=== PATIENT | female | born 2005 | race Caucasian/White ===

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

== ENCOUNTER 2024-10-01 17:46 | Emergency (ER) | payer OTHER, SELFPAY ==
--- NOTE | ~2024-10-01 | CT_ITS ---
CT of the Abdomen and Pelvis: Indication: Abdominal pain Technique: 2.5 mm axial scans were obtained through the abdomen and pelvis following intravenous adm inistration of 100 cc of Omnipaque 350. Dose reduction technique was used on this scan by utilizing a utomated exposure control and iterative reconstruction technique. The dose-length product (DLP) was 2 94.30 mGy-cm. Findings: Scans through the lung bases are unremarkable. The liver, spleen, pancreas, gallbladder, and adrenal glands are within normal limits. There is patch y decreased parenchymal enhancement of the superior pole the left kidney, compatible with pyelonephri tis. There is similar involvement focally, to lesser extent, in the right renal cortex (axial image 6 3). No abscess or hydronephrosis. No evidence of aortic aneurysm. No lymphadenopathy. No bowel obstruction or bowel wall thickening. There is no evidence to suggest acute appendicitis. Images through the pelvis were performed. Urinary bladder unremarkable. No adnexal mass. No ascites. Impression: Bilateral pyelonephritis, left worse than right. No abscess or hydronephrosis. Reviewed, dictated and finalized at location . Impression: Bilateral pyelonephritis, left worse than right. No abscess or hydronephrosis.
[2024-10-01 17:46] VITALS: BP 128/87; PULSE 124; RESP 20; TEMP 37.4; O2SAT 99
--- OUTSIDE RECORDS SUMMARY | 2024-10-01 17:48 | XMS_ITS | CONTINUITY OF CARE DOCUMENT ---
Author Name jackie mejia Address Unknown Organization [facility] Address [address] [place] [address] Phone [phone] Care Team Providers Care Deployment Technician Name Role Phone Mariama DELUNA, Víctor Unavailable [phone] DIONISIO PEREZ MD Unavailable INSURANCE PROVIDERS Payer name Policy type / Coverage type [place] [employer] Medicaid [id number]
--- NOTE | 2024-10-01 20:35 | ED_ITS ---
HPI - Back Pain/Injury General Chief Complaint: Back Pain/Injury <NAOMIE Devine Last Filed: 10/03/24 10:09> Stated Complaint: back pain, bilateral flank <NAOMIE Devine Last Filed: 10/03/24 10:09> Time Seen by Provider: 10/01/24 20:22 <NAOMIE Devine Last Filed: 10/03/24 10:09> Source: patient <NAOMIE Devine Last Filed: 10/03/24 10:09> Mode of arrival: ambulatory <NAOMIE Devine Last Filed: 10/03/24 10:09> Limitations: no limitations <NAOMIE Devine Last Filed: 10/03/24 10:09> History of Present Illness HPI Narrative: This is a 19 year old female that presents to the ER for flank pain, lower abdominal pain. Ongoing since yesterday. Reports subjective fevers. Denies dysuria, hematuria. <NAOMIE Devine Last Filed: 10/03/24 10:09> Related Data Home Medications: Home Medications Medication Instructions Recorded Confirmed Last Taken Type aspirin 81 mg tablet,delayed 81 mg PO DAILY 01/28/20 01/28/20 Unknown History release (Madeleine Low Dose Aspirin) calcium 500 mg (as 1 tablet PO BID 01/28/20 01/28/20 Unknown History carbonate)-vitamin D3 5 mcg (200 unit) tablet (Oysco 500/D) folic acid 1 mg tablet 4 mg PO DAILY 01/28/20 01/28/20 Unknown History vit no.95-ferrous 1 tablet PO DAILY 01/28/20 01/28/20 Unknown History fumarate 28 mg-folic acid 800 mcg tablet () <NAOMIE Devine Last Filed: 10/03/24 10:09> Allergies/Adverse Reactions: Allergies Allergy/AdvReac Type Severity Reaction Status Date / Time latex Allergy Itching Verified 10/01/24 17:48 <NAOMIE Devine Last Filed: 10/03/24 10:09> Review of Systems 2 Review of Systems: CONSTITUTIONAL: Denies fever GASTROINTESTINAL: Reports abdominal pain. Denies nausea, vomiting GENITOURINARY: Reports dysuria. Denies hematuria. 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 in teenager <Natalie Muhammad PA-C - Last Filed: 10/03/24 10:09> Family History Family History: Family History Grandparent Cervical cancer Mother Cervical cancer <Natalie Muhammad PA-C - Last Filed: 10/03/24 10:09> Social History Social History: Social History (Updated 02/20/20 @ 12:23 by Bo MeyersMD) Smoking packs per day: 1 Smoking cigarettes per day: 20.0 Years smoked: 2 Smoking pack-years: 2.00 Smoking status: Former smoker Tobacco type: cigarettes Second hand tobacco smoke exposure: Yes Alcohol intake: never Substance use: former Substance use type: marijuana Living arrangements: with family Occupation/Education: student Gender identity (if verbalized by the patient): Female Sexual Orientation (if Verbalized by the Patient): Straight or Heterosexual Spiritual care concerns: No <NAOMIE Devine Last Filed: 10/03/24 10:09> Exam 2 Narrative: GENERAL: Well-appearing, well-nourished, and in no acute distress. HEAD: Normocephalic, atraumatic. EYES: EOMI. CHEST: Clear to auscultation. No respiratory distress. No wheezes rales or rhonchi HEART: Regular rate and rhythm. No murmur heard. Normal peripheral pulses. ABDOMEN: Soft, nontender, nondistended, normal active bowel sounds. EXTREMITIES: Normal range of motion. No edema. SKIN: Warm, dry, no rash. NEURO: No focal deficits. Alert and oriented x3. PSYCH: Normal mood and affect <Natalie Muhammad PA-C - Last Filed: 10/03/24 10:09> Course Course Emergency Course: Patient was updated on her workup thus far. Dr. Tran will follow-up for disposition <Natalie Muhammad PA-C - Last Filed: 10/03/24 10:09> Vital Signs Vital signs: Vital Signs Temperature 99.3 F 10/01/24 17:46 Pulse Rate 124 H 10/01/24 17:46 Respiratory Rate 20 10/01/24 17:46 Blood Pressure 128/87 10/01/24 17:46 Pulse Oximetry 99 10/01/24 17:46 Oxygen Delivery Room Air 10/01/24 17:46 Temperature 98 F 10/02/24 04:18 Pulse Rate 86 10/02/24 04:18 Respiratory Rate 15 10/02/24 04:18 Blood Pressure 111/63 10/02/24 04:18 Pulse Oximetry 100 10/02/24 04:18 Oxygen Delivery Room Air 10/01/24 20:36 <Natalie Muhammad PA-C - Last Filed: 10/03/24 10:09> Vital Signs Temperature 99.3 F 10/01/24 17:46 Pulse Rate 124 H 10/01/24 17:46 Respiratory Rate 20 10/01/24 17:46 Blood Pressure 128/87 10/01/24 17:46 Pulse Oximetry 99 10/01/24 17:46 Oxygen Delivery Room Air 10/01/24 17:46 Temperature 98 F 10/02/24 04:18 Pulse Rate 86 10/02/24 04:18 Respiratory Rate 15 10/02/24 04:18 Blood Pressure 111/63 10/02/24 04:18 Pulse Oximetry 100 10/02/24 04:18 Oxygen Delivery Room Air 10/01/24 20:36 <Vika Tran MD - Last Filed: 10/02/24 03:44> MDM - Back Pain/Injury MDM Narrative Medical decision making narrative: Patient presents to the emergency department for flank pain, lower abdominal pain. Tachycardic upon arrival, this normalized with IV fluid hydration. She is afebrile and nontoxic appearing. CBC with leukocytosis to 13. Metabolic panel with normal appearing kidney function. She does have mild hyponatremia. Patient was hydrated with 2 L of IV fluids. Urine without evidence of infection. This was sent for culture. test is negative. Care taken over by Dr. Tran pending CT results [age] year-old patient presenting with flank pain and urinary symptoms consistent with UTI. Urinalysis is obtained and positive for signs of infection. Urine culture sent. CT obtained to rule out infected stone, this does not show stone but does show pyelonephritis. Patient started on ceftriaxone and IV fluids here, Toradol for pain, and on re- evaluation, is now resting very comfortably and feeling much better. Repeat vital signs are normal. Patient like to go home at this time and I feel this is quite reasonable given her vital signs are now completely normal and she is in no distress, I will start her on antibiotics for pyelonephritis with strict return precautions, discussed with patient and boyfriend at bedside. Follow-up to PCP. <Natalie Muhammad PA-C - Last Filed: 10/03/24 10:09> [age] year-old patient presenting with flank pain and urinary symptoms consistent with UTI. Urinalysis is obtained and positive for signs of infection. Urine culture sent. CT obtained to rule out infected stone, this is she does not show stone but does show pyelonephritis. Patient started on ceftriaxone and IV fluids here, Toradol for pain, and on re- evaluation, is now resting very comfortably and feeling much better. Repeat vital signs are normal. Patient like to go home at this time and I feel this is quite reasonable given her vital signs are now completely normal and she is in no distress, I will start her on antibiotics for pyelonephritis with strict return precautions, discussed with patient and boyfriend at bedside. Follow-up to PCP. <Vika Tran MD - Last Filed: 10/02/24 03:44> Differential Diagnosis Differential diagnosis: Likely pyelonephritis and other (Kidney stone) <Natalie Muhammad PA-C - Last Filed: 10/03/24 10:09> Lab Data Attestation: I reviewed the patient's lab results. <Natalie Muhammad PA-C - Last Filed: 10/03/24 10:09> Result diagrams: 10/01/24 20:35 10/01/24 20:36 <Natalie Muhammad PA-C - Last Filed: 10/03/24 10:09> Labs: Lab Results 10/01/24 10/01/24 10/01/24 Range/Units 20:35 20:36 21:05 WBC 13.0 H (4.5-10.0) K/mm3 RBC 4.20 (4.2-5.4) M/mm3 Hgb 13.8 D (12.0-15.0) g/dL Hct 39.7 (37.0-47.0) % MCV 94.5 (80-100) fl MCH 32.9 (26-34) pg MCHC 34.8 (32-36) g/dl RDW 11.4 L (11.5-14.5) % Plt Count 257 (150-375) k/mm3 MPV 9.0 (7.4-10.4) fl Immature Gran % (Auto) 0.5 (0-0.5) % Neut % (Auto) 85.5 H (45.5-73.1) % Lymph % (Auto) 5.8 L (18.3-44.2) % [place] % (Auto) 7.9 (2.6-8.5) % Eos % (Auto) 0.1 (0-4.4) % Baso % (Auto) 0.2 (0.2-1.2) % Lymph # (Auto) 0.75 L (0.9-3.2) K/mm3 [place] # (Auto) 1.0 H (0.1-0.6) K/mm3 Eos # (Auto) 0.0 (0-0.3) K/mm3 Baso # (Auto) 0.0 (0.0-0.1) K/mm3 Abs Immat Gran (auto) 0.07 H (0.00-0.031) K/mm3 Absolute Neuts (auto) 11.1 H (1.3-6.7) K/mm3 Absolute Nucleated RBC 0.000 (0.0-0.012) K/mm3 Nucleated RBC % 0.0 (0.0-0.2) % Sodium 129 L (137-145) mmol/L Potassium 3.8 (3.4-5.0) mmol/L Chloride 99 (98-107) mmol/L Carbon Dioxide 20 L (22-30) mmol/L Anion Gap 10 (4-12) mmol/L BUN 12 (7-17) mg/dL Creatinine 0.82 (0.7-1.0) mg/dL Estim Creat Clear Calc 85 ml/min Estimated GFR > 60 (59 - ) Glucose 121 H (65-110) mg/dL Calcium 9.2 (8.4-10.2) mg/dL Total Bilirubin 0.7 (0.2-1.3) mg/dL AST 25 (14-36) U/L ALT 21 (6-35) U/L Alkaline Phosphatase 100 (38-126) U/L Total Protein 8.0 (6.3-8.2) g/dL Albumin 4.2 (3.5-5.1) g/dL Urine Color Yellow (Yellow) Urine Appearance Cloudy H (Clear) Urine pH 5.5 (5.0-9.0) Ur Specific [place] 1.016 (1.001-1.035) Urine Protein 1+ H (Negative) mg/dL Urine Glucose (UA) Negative (Negative) mg/dL Urine Ketones Trace H (Negative) mg/dL Ur Blood (Man) 2+ H (Negative) Urine Nitrate Positive H (Negative) Urine Bilirubin Negative (Negative) Urine Urobilinogen 0.2 (<2.0) mg/dL Add Ur Microanalysis Reviewed Leukocyte Esterase Rfl 3+ H (Negative) CHASE/UL Urine RBC 11-20 H (0-2) /hpf Urine WBC >100 H (0-3) /hpf Ur Squamous Epith Cells Few (Few) /hpf Urine Bacteria 4+ H /hpf Urine Casts 0-2 POC Urine HCG, Qual (Negative) 10/01/24 Range/Units 21:07 WBC (4.5-10.0) K/mm3 RBC (4.2-5.4) M/mm3 Hgb (12.0-15.0) g/dL Hct (37.0-47.0) % MCV (80-100) fl MCH (26-34) pg MCHC (32-36) g/dl RDW (11.5-14.5) % Plt Count (150-375) k/mm3 MPV (7.4-10.4) fl Immature Gran % (Auto) (0-0.5) % Neut % (Auto) (45.5-73.1) % Lymph % (Auto) (18.3-44.2) % [place] % (Auto) (2.6-8.5) % Eos % (Auto) (0-4.4) % Baso % (Auto) (0.2-1.2) % Lymph # (Auto) (0.9-3.2) K/mm3 [place] # (Auto) (0.1-0.6) K/mm3 Eos # (Auto) (0-0.3) K/mm3 Baso # (Auto) (0.0-0.1) K/mm3 Abs Immat Gran (auto) (0.00-0.031) K/mm3 Absolute Neuts (auto) (1.3-6.7) K/mm3 Absolute Nucleated RBC (0.0-0.012) K/mm3 Nucleated RBC % (0.0-0.2) % Sodium (137-145) mmol/L Potassium (3.4-5.0) mmol/L Chloride (98-107) mmol/L Carbon Dioxide (22-30) mmol/L Anion Gap (4-12) mmol/L BUN (7-17) mg/dL Creatinine (0.7-1.0) mg/dL Estim Creat Clear Calc ml/min Estimated GFR (59 - ) Glucose (65-110) mg/dL Calcium (8.4-10.2) mg/dL Total Bilirubin (0.2-1.3) mg/dL AST (14-36) U/L ALT (6-35) U/L Alkaline Phosphatase (38-126) U/L Total Protein (6.3-8.2) g/dL Albumin (3.5-5.1) g/dL Urine Color (Yellow) Urine Appearance (Clear) Urine pH (5.0-9.0) Ur Specific [place] (1.001-1.035) Urine Protein (Negative) mg/dL Urine Glucose (UA) (Negative) mg/dL Urine Ketones (Negative) mg/dL Ur Blood (Man) (Negative) Urine Nitrate (Negative) Urine Bilirubin (Negative) Urine Urobilinogen (<2.0) mg/dL Add Ur Microanalysis Leukocyte Esterase Rfl (Negative) CHASE/UL Urine RBC (0-2) /hpf Urine WBC (0-3) /hpf Ur Squamous Epith Cells (Few) /hpf Urine Bacteria /hpf Urine Casts POC Urine HCG, Qual Negative (Negative) <Natalie Muhammad PA-C - Last Filed: 10/03/24 10:09> Lab Results 10/01/24 10/01/24 10/01/24 Range/Units 20:35 20:36 21:05 WBC 13.0 H (4.5-10.0) K/mm3 RBC 4.20 (4.2-5.4) M/mm3 Hgb 13.8 D (12.0-15.0) g/dL Hct 39.7 (37.0-47.0) % MCV 94.5 (80-100) fl MCH 32.9 (26-34) pg MCHC 34.8 (32-36) g/dl RDW 11.4 L (11.5-14.5) % Plt Count 257 (150-375) k/mm3 MPV 9.0 (7.4-10.4) fl Immature Gran % (Auto) 0.5 (0-0.5) % Neut % (Auto) 85.5 H (45.5-73.1) % Lymph % (Auto) 5.8 L (18.3-44.2) % [place] % (Auto) 7.9 (2.6-8.5) % Eos % (Auto) 0.1 (0-4.4) % Baso % (Auto) 0.2 (0.2-1.2) % Lymph # (Auto) 0.75 L (0.9-3.2) K/mm3 [place] # (Auto) 1.0 H (0.1-0.6) K/mm3 Eos # (Auto) 0.0 (0-0.3) K/mm3 Baso # (Auto) 0.0 (0.0-0.1) K/mm3 Abs Immat Gran (auto) 0.07 H (0.00-0.031) K/mm3 Absolute Neuts (auto) 11.1 H (1.3-6.7) K/mm3 Absolute Nucleated RBC 0.000 (0.0-0.012) K/mm3 Nucleated RBC % 0.0 (0.0-0.2) % Sodium 129 L (137-145) mmol/L Potassium 3.8 (3.4-5.0) mmol/L Chloride 99 (98-107) mmol/L Carbon Dioxide 20 L (22-30) mmol/L Anion Gap 10 (4-12) mmol/L BUN 12 (7-17) mg/dL Creatinine 0.82 (0.7-1.0) mg/dL Estim Creat Clear Calc 85 ml/min Estimated GFR > 60 (59 - ) Glucose 121 H (65-110) mg/dL Calcium 9.2 (8.4-10.2) mg/dL Total Bilirubin 0.7 (0.2-1.3) mg/dL AST 25 (14-36) U/L ALT 21 (6-35) U/L Alkaline Phosphatase 100 (38-126) U/L Total Protein 8.0 (6.3-8.2) g/dL Albumin 4.2 (3.5-5.1) g/dL Urine Color Yellow (Yellow) Urine Appearance Cloudy H (Clear) Urine pH 5.5 (5.0-9.0) Ur Specific [place] 1.016 (1.001-1.035) Urine Protein 1+ H (Negative) mg/dL Urine Glucose (UA) Negative (Negative) mg/dL Urine Ketones Trace H (Negative) mg/dL Ur Blood (Man) 2+ H (Negative) Urine Nitrate Positive H (Negative) Urine Bilirubin Negative (Negative) Urine Urobilinogen 0.2 (<2.0) mg/dL Add Ur Microanalysis Reviewed Leukocyte Esterase Rfl 3+ H (Negative) CHASE/UL Urine RBC 11-20 H (0-2) /hpf Urine WBC >100 H (0-3) /hpf Ur Squamous Epith Cells Few (Few) /hpf Urine Bacteria 4+ H /hpf Urine Casts 0-2 POC Urine HCG, Qual (Negative) // Range/Units 21:07 WBC (4.5-10.0) K/mm3 RBC (4.2-5.4) M/mm3 Hgb (12.0-15.0) g/dL Hct (37.0-47.0) % MCV (80-100) fl MCH (26-34) pg MCHC (32-36) g/dl RDW (11.5-14.5) % Plt Count (150-375) k/mm3 MPV (7.4-10.4) fl Immature Gran % (Auto) (0-0.5) % Neut % (Auto) (45.5-73.1) % Lymph % (Auto) (18.3-44.2) % [place] % (Auto) (2.6-8.5) % Eos % (Auto) (0-4.4) % Baso % (Auto) (0.2-1.2) % Lymph # (Auto) (0.9-3.2) K/mm3 [place] # (Auto) (0.1-0.6) K/mm3 Eos # (Auto) (0-0.3) K/mm3 Baso # (Auto) (0.0-0.1) K/mm3 Abs Immat Gran (auto) (0.00-0.031) K/mm3 Absolute Neuts (auto) (1.3-6.7) K/mm3 Absolute Nucleated RBC (0.0-0.012) K/mm3 Nucleated RBC % (0.0-0.2) % Sodium (137-145) mmol/L Potassium (3.4-5.0) mmol/L Chloride (98-107) mmol/L Carbon Dioxide (22-30) mmol/L Anion Gap (4-12) mmol/L BUN (7-17) mg/dL Creatinine (0.7-1.0) mg/dL Estim Creat Clear Calc ml/min Estimated GFR (59 - ) Glucose (65-110) mg/dL Calcium (8.4-10.2) mg/dL Total Bilirubin (0.2-1.3) mg/dL AST (14-36) U/L ALT (6-35) U/L Alkaline Phosphatase (38-126) U/L Total Protein (6.3-8.2) g/dL Albumin (3.5-5.1) g/dL Urine Color (Yellow) Urine Appearance (Clear) Urine pH (5.0-9.0) Ur Specific [place] (1.001-1.035) Urine Protein (Negative) mg/dL Urine Glucose (UA) (Negative) mg/dL Urine Ketones (Negative) mg/dL Ur Blood (Man) (Negative) Urine Nitrate (Negative) Urine Bilirubin (Negative) Urine Urobilinogen (<2.0) mg/dL Add Ur Microanalysis Leukocyte Esterase Rfl (Negative) CHASE/UL Urine RBC (0-2) /hpf Urine WBC (0-3) /hpf Ur Squamous Epith Cells (Few) /hpf Urine Bacteria /hpf Urine Casts POC Urine HCG, Qual Negative (Negative) <Vika Tran MD - Last Filed: 10/02/24 03:44> Imaging Data Radiologist's impression: ITS Impressions Abdomen/Pelvis CT 10/02/24 05:40 Impression: Bilateral pyelonephritis, left worse than right. No abscess or hydronephrosis. <Natalie Muhammad PA-C - Last Filed: 10/03/24 10:09> Critical Care Time Critical Care Time Critical Care Time: No <Natalie Muhammad PA-C - Last Filed: 10/03/24 10:09> Discharge Plan Discharge Clinical Impression: Pyelonephritis <Natalie Muhammad PA-C - Last Filed: 10/03/24 10:09> Patient Disposition: Home <Natalie Muhammad PA-C - Last Filed: 10/03/24 10:09> Condition: Stable <Natalie Muhammad PA-C - Last Filed: 10/03/24 10:09> Instructions: Kidney Infection (ED) <Natalie Muhammad PA-C - Last Filed: 10/03/24 10:09> Additional Instructions: Please follow up with your doctor; take all your antibiotics as prescribed, and few feel worse or can not keep anything down, come back to the hospital. <Natalie Muhammad PA-C - Last Filed: 10/03/24 10:09> Patient Language: Sen[place]alese <Natalie Muhammad PA-C - Last Filed: 10/03/24 10:09> Prescriptions: New sulfamethoxazole-trimethoprim [Bactrim DS] 800-160 mg tablet 1 tablet PO Q12H Qty: 14 0RF ibuprofen 600 mg tablet 600 mg PO TID PRN (Reason: fever or pain) Qty: 30 0RF ondansetron 4 mg tablet,disintegrating 4 mg PO Q8H PRN (Reason: nausea and vomiting) Qty: 10 0RF No Action aspirin [Madeleine Low Dose Aspirin] 81 mg Tablet,Delayed Release (Dr/Ec) 81 mg PO DAILY folic acid 1 mg Tablet 4 mg PO DAILY calcium carbonate-vitamin D3 [Oysco 500/D] 500 mg(1,250mg) -200 unit Tablet 1 tablet PO BID PNV cmb#95-ferrous fumarate-FA [] 28 mg iron- 800 mcg Tablet 1 tablet PO DAILY <Natalie Muhammad PA-C - Last Filed: 10/03/24 10:09> Follow-up/Referrals: UNKNOWN,DOCTOR [Non-Staff] - <Natalie Muhammad PA-C - Last Filed: 10/03/24 10:09>
[2024-10-01 20:36] VITALS: BP 123/71; PULSE 71; RESP 20; TEMP 37.6; O2SAT 95
[2024-10-01 20:41] VITALS: BP 123/71; PULSE 90; O2SAT 96
[2024-10-01 20:50] LABS: Basophils Percent Auto 0.2 % (0.2-1.2); Eosinophils Percent Auto 0.1 % (0-4.4); Hematocrit 39.7 % (37.0-47.0); Hemoglobin 13.8 g/dL (12.0-15.0); Immature Granulocyte Absolute 0.07 K/mm3 (0.00-0.031); Immature Granulocyte Percent A 0.5 % (0-0.5); Lymphocytes Absolute Auto 0.75 K/mm3 (0.9-3.2); Lymphocytes Percent Auto 5.8 % (18.3-44.2); Mean Corpuscular HGB Conc 34.8 g/dl (32-36); Mean Corpuscular Hemoglobin 32.9 pg (26-34); Mean Corpuscular Volume 94.5 fl (80-100); Monocytes Percent Auto 7.9 % (2.6-8.5); Neutrophils Absolute Auto 11.1 K/mm3 (1.3-6.7); Neutrophils Percent Auto 85.5 % (45.5-73.1); Platelet Count Result 257 k/mm3 (150-375); Red Cell Distribution Width 11.4 % (11.5-14.5)
[2024-10-01 21:00] LABS: Alanine Aminotransferase 21 U/L (6-35); Albumin Level 4.2 g/dL (3.5-5.1); Alkaline Phosphatase 100 U/L (38-126); Anion Gap 10 mmol/L (4-12); Aspartate Amino Transferase 25 U/L (14-36); Bilirubin,Total 0.7 mg/dL (0.2-1.3); Blood Urea Nitrogen 12 mg/dL (7-17); Calcium 9.2 mg/dL (8.4-10.2); Carbon Dioxide 20 mmol/L (22-30); Chloride 99 mmol/L (98-107); Estimated CRCL calculation 85 ml/min; Estimated Glomerular Filt Rate > 60; Glucose 121 mg/dL (65-110); Potassium 3.8 mmol/L (3.4-5.0); Sodium 129 mmol/L (137-145)
[2024-10-01 21:03] VITALS: O2SAT 99
[2024-10-01] MEDS: SODIUM CHLORIDE 0.9% IV 1,000 ML 999 ML IV CONT ×2 (21:06→22:09)
[2024-10-01 21:09] LABS: BEDSIDEPREGUCG Negative (Negative)
[2024-10-01 21:15] VITALS: BP 129/94; PULSE 95; O2SAT 98
[2024-10-01 21:16] VITALS: PULSE 83; RESP 20; O2SAT 98
[2024-10-01 21:38] LABS: Add Urine Microscopic? YES; Appearance Urine Cloudy (Clear); Bacteria Urine 4+ /hpf; Bilirubin Urine Negative (Negative); Blood Urine 2+ (Negative); Color Urine Yellow (Yellow); Glucose Urine UA Negative (Negative); Ketones Urine Trace mg/dL (Negative); Leukocyte Esterase Ur 3+ LEU/UL (Negative); Need Manual Microscopic Reviewed; Nitrate Urine Positive (Negative); Non Pathogenic Casts 0-2; Protein Urine 1+ mg/dL (Negative); Specific Grav Ur 1.016 (1.001-1.035); Squamous Epithelial Cell Urine Few /hpf (Few); Urobilinogen Urine 0.2 mg/dL (<2.0); WBC Urine >100 /hpf (0-3); pH Urine 5.5 (5.0-9.0)
[2024-10-01] MEDS: ACETAMINOPHEN 500 MG TABLET 1000 MG PO (22:08)
--- NOTE | 2024-10-01 22:30 | PC.NURSE ---
Blood Cultures sent
[2024-10-02 00:15] VITALS: PULSE 108; RESP 29
[2024-10-02 01:12] VITALS: TEMP 37.2
[2024-10-02] MEDS: KETOROLAC 15 MG/ML VIAL (*BKC) IV PUSH (02:14)
[2024-10-02 02:45] VITALS: BP 116/76; PULSE 79; O2SAT 98
[2024-10-02 04:17] VITALS: TEMP 36.6
[2024-10-02 04:18] VITALS: BP 111/63; PULSE 86; RESP 15; TEMP 36.6; O2SAT 100
== END 2024-10-02 03:55 | disposition home or self-care (01) ==
PROVIDERS: Physician Assistant; Emergency Provider Emergency Medicine
DX: N12 Tubulo-interstitial nephritis, not specified as acute or chronic (principal); Z87.891 Personal history of nicotine dependence
CPT/HCPCS: 36415; 74177; 80053; 81001; 81025; 85025; 87040; 87086; 87186; 96365; 96374; 99284; A9270; J0696; J1885; J7030; Q9967

== ENCOUNTER 2024-11-11 14:23 | Emergency (ER) | payer OTHER, SELFPAY ==
--- NOTE | ~2024-11-11 | XR_ITS ---
XR ankle RT min 3V Ordering provider: Bernadine Perdomo APRN History: . injury . Comparison: None. FINDINGS: BONES: No acute fracture or dislocation. JOINT SPACES: Normal. SOFT TISSUES: Normal. IMPRESSION: No acute osseous abnormality of the right ankle. Reviewed, dictated and finalized at location A.
--- NOTE | ~2024-11-11 | XR_ITS ---
XR foot RT min 3V Ordering provider: Bernadine Perdomo APRN History: . injury . Comparison: None. FINDINGS: BONES: No acute fracture or dislocation. JOINT SPACES: Normal. No tarsal coalition. SOFT TISSUES: Normal. IMPRESSION: No acute osseous abnormality of the right foot. Reviewed, dictated and finalized at location A.
[2024-11-11 14:27] VITALS: BP 128/55; PULSE 81; RESP 16; TEMP 36.6; O2SAT 100
--- NOTE | 2024-11-11 14:36 | ED.LOWEXIN ---
HPI - Extremity Injury (Lower) General Chief Complaint: Extremity Injury, Lower <Bernadine Perdomo DIRECTOR OF OCCUPATIONAL HEALTH - Last Filed: 11/11/24 14:40> Stated Complaint: R foot/ankle injury after fall yesterday <Bernadine Perdomo APRN - Last Filed: 11/11/24 14:40> Time Seen by Provider: 11/11/24 14:25 <Bernadine Perdomo APRN - Last Filed: 11/11/24 14:40> Focused HPI: Patient is a 19-year-old female who presents to the ER with right foot pain. She reports she was getting out of her car last night and fell. Patient is unsure about the mechanism of injury. She endorses pain in her right toes and the distal part of her right foot. Patient endorses bruising underneath her right ankle. She endorses a history of kidney problems including a recent kidney infection. Patient denies any other medical history relevant to this ER visit. She reports she has not taken anything to treat the pain. Patient denies any calf pain, recent fevers, decreased range of motion in her ankle. GENERAL: Well-appearing, well-nourished, and in no acute distress. HEAD: Normocephalic, atraumatic. CHEST: Clear to auscultation. ?No respiratory distress. HEART: Regular rate and rhythm.? NEURO: ?Alert and oriented x3. Patient screened in triage and initial orders placed.? ?Additional care and disposition to be based upon?diagnostic testing and treatment. <Bernadine Perdomo APRN - Last Filed: 11/11/24 14:40> Focused HPI: Patient is a 19-year-old female who presents to the ER with right foot pain. She reports she was getting out of her car last night and fell. Patient is unsure about the mechanism of injury. She endorses pain in her right toes and the distal part of her right foot. Patient endorses bruising underneath her right ankle. She endorses a history of kidney problems including a recent kidney infection. Patient denies any other medical history relevant to this ER visit. She reports she has not taken anything to treat the pain. Patient denies any calf pain, recent fevers, decreased range of motion in her ankle. GENERAL: Well-appearing, well-nourished, and in no acute distress. HEAD: Normocephalic, atraumatic. CHEST: Clear to auscultation. ?No respiratory distress. HEART: Regular rate and rhythm.? NEURO: ?Alert and oriented x3. Patient screened in triage and initial orders placed.? ?Additional care and disposition to be based upon?diagnostic testing and treatment. <NAOMIE Pereira Last Filed: 11/11/24 20:28> Source: patient <NAOMIE Pereira Last Filed: 11/11/24 20:28> Mode of arrival: ambulatory <NAOMIE Pereira Last Filed: 11/11/24 20:28> Limitations: no limitations <NAOMIE Pereira Last Filed: 11/11/24 20:28> History of Present Illness HPI Narrative: agree with above HPI. Denies numbness. <NAOMIE Pereira Last Filed: 11/11/24 20:28> Related Data Home Medications: Home Medications ?Medication ?Instructions ?Recorded ?Confirmed ?Last Taken ?Type aspirin 81 mg tablet,delayed 81 mg PO DAILY 01/28/20 01/28/20 Unknown History release (Madeleine Low Dose Aspirin) calcium 500 mg (as 1 tablet PO BID 01/28/20 01/28/20 Unknown History carbonate)-vitamin D3 5 mcg (200 unit) tablet (Oysco 500/D) folic acid 1 mg tablet 4 mg PO DAILY 01/28/20 01/28/20 Unknown History vit no.95-ferrous 1 tablet PO DAILY 01/28/20 01/28/20 Unknown History fumarate 28 mg-folic acid 800 mcg tablet () <Bernadine Perdomo APRN - Last Filed: 11/11/24 14:40> Allergies/Adverse Reactions: Allergies Allergy/AdvReac Type Severity Reaction Status Date / Time latex Allergy Itching Verified 11/11/24 14:25 <Bernadine Perdomo APRN - Last Filed: 11/11/24 14:40> Review of Systems Review of Systems: All systems reviewed & are unremarkable except as noted in HPI. <NAOMIE Pereira Last Filed: 11/11/24 20:28> All systems reviewed & are unremarkable except as noted in HPI and below <Yahaira Noble PA-C - Last Filed: 11/11/24 20:28> [facility] Past Medical History Medical History: Medical History Candidiasis of vagina Bacterial vaginosis Rh negative status during Homozygous MTHFR mutation C677T Intrauterine in teenager <Bernadine Perdomo APRN - Last Filed: 11/11/24 14:40> Family History Family History: Family History Grandparent Cervical cancer Mother Cervical cancer <Bernadine Perdomo APRN - Last Filed: 11/11/24 14:40> Social History Social History: Social History Smoking packs per day: 1 Smoking cigarettes per day: 20.0 Years smoked: 2 Smoking pack-years: 2.00 Smoking status: Former smoker Tobacco type: cigarettes Second hand tobacco smoke exposure: Yes Alcohol intake: never Substance use: former Substance use type: marijuana Living arrangements: with family Occupation/Education: student Gender identity (if verbalized by the patient): Female Sexual Orientation (if Verbalized by the Patient): Straight or Heterosexual Spiritual care concerns: No <Bernadine Perdomo APRN - Last Filed: 11/11/24 14:40> Exam Narrative: GENERAL: Well appearing, well-nourished, non-toxic, in no acute distress. HEAD: Normocephalic, atraumatic. RESPIRATORY: Airway patent, respirations nonlabored. CARDIOVASCULAR: Regular rate and rhythm. Pedal pulses intact and easily palpable. MUSCULOSKELETAL: Moves all extremities. No gross deformities. Moderate swelling and bruising to right lateral dorsal foot/lateral malleoli. Focal tenderness to palpation. Sensation intact. Capillary refill intact. SKIN: Warm, dry, normal color. NEURO: A&O X3. Speech clear. No ataxic movements. PSYCHIATRIC: Appropriate mood and affect. Normal interaction. <Yahaira Noble PA-C - Last Filed: 11/11/24 20:28> Course Vital Signs Vital signs: Vital Signs Temperature 97.9 F 11/11/24 14:27 Pulse Rate 81 11/11/24 14:27 Respiratory Rate 16 11/11/24 14:27 Blood Pressure 128/55 L 11/11/24 14:27 Pulse Oximetry 100 11/11/24 14:27 Temperature 97.7 F 11/11/24 19:32 Pulse Rate 76 11/11/24 19:32 Respiratory Rate 16 11/11/24 19:32 Blood Pressure 119/74 11/11/24 19:32 Pulse Oximetry 98 11/11/24 19:32 Oxygen Delivery Room Air 11/11/24 19:32 <Bernadine Perdomo APRN - Last Filed: 11/11/24 14:40> Vital Signs Temperature 97.9 F 11/11/24 14:27 Pulse Rate 81 11/11/24 14:27 Respiratory Rate 16 11/11/24 14:27 Blood Pressure 128/55 L 11/11/24 14:27 Pulse Oximetry 100 11/11/24 14:27 Temperature 97.7 F 11/11/24 19:32 Pulse Rate 76 11/11/24 19:32 Respiratory Rate 16 11/11/24 19:32 Blood Pressure 119/74 11/11/24 19:32 Pulse Oximetry 98 11/11/24 19:32 Oxygen Delivery Room Air 11/11/24 19:32 <NAOMIE Pereira Last Filed: 11/11/24 20:28> MDM - Extremity Injury (Lower) MDM Narrative Medical decision making narrative: Patient?s injury is consistent with musculoskeletal etiology. No signs of neurologic or vascular compromise on physical examination. Compartments are soft without signs of compartment syndrome. XR of right ankle/foot negative for fracture. Pain is consistent with ankle sprain. Patient is felt to be stable for discharge home and further outpatient management and treatment. Patient placed in Lyle bandage. Given crutches. Discussed rice therapy. Discussed return precautions. Discharged in stable condition. <NAOMIE Pereira Last Filed: 11/11/24 20:28> Medical Records Attestation: I reviewed the patient's medical records. <NAOMIE Pereira Last Filed: 11/11/24 20:28> Imaging Data Attestation: I personally reviewed and interpreted this imaging study as follows: <Yahaira Noble PA-C - Last Filed: 11/11/24 20:28> Radiologist's impression: ITS Impressions Ankle X-Ray 11/11/24 14:39 IMPRESSION: No acute osseous abnormality of the right ankle. Foot X-Ray 11/11/24 14:41 IMPRESSION: No acute osseous abnormality of the right foot. <Yahaira Noble PA-C - Last Filed: 11/11/24 20:28> Discharge Plan Discharge Clinical Impression: Sprain of right ankle Qualifiers: Encounter type: initial encounter Involved ligament of ankle: unspecified ligament Qualified Code(s): S93.401A - Sprain of unspecified ligament of right ankle, initial encounter <Bernadine Perdomo APRN - Last Filed: 11/11/24 14:40> Patient Disposition: Home <Bernadine Perdomo APRN - Last Filed: 11/11/24 14:40> Condition: Stable <Bernadine Perdomo APRN - Last Filed: 11/11/24 14:40> Instructions: Antibiotic Form, Ankle Sprain (ED), P.R.I.C.E. Treatment (ED) <Bernadine Perdomo APRN - Last Filed: 11/11/24 14:40> Additional Instructions: Continue Tylenol and ibuprofen as needed for pain. Recommend frequent icing to ankle, elevation of right leg. Utilize Lyle bandage for compression/support. Utilize crutches for assistance with walking. Follow-up with orthopedics for further evaluation if needed. Return to the ED if you experience worsening or severe pain/swelling, recurrent injury, numbness, or any other symptoms of concern. <Bernadine Perdomo APRN - Last Filed: 11/11/24 14:40> Patient Language: Urdu <Bernadine Perdomo APRN - Last Filed: 11/11/24 14:40> Prescriptions: No Action aspirin [Madeleine Low Dose Aspirin] 81 mg Tablet,Delayed Release (Dr/Ec) 81 mg PO DAILY folic acid 1 mg Tablet 4 mg PO DAILY calcium carbonate-vitamin D3 [Oysco 500/D] 500 mg(1,250mg) -200 unit Tablet 1 tablet PO BID PNV cmb#95-ferrous fumarate-FA [] 28 mg iron- 800 mcg Tablet 1 tablet PO DAILY sulfamethoxazole-trimethoprim [Bactrim DS] 800-160 mg tablet 1 tablet PO Q12H Qty: 14 0RF ibuprofen 600 mg tablet 600 mg PO TID PRN (Reason: fever or pain) Qty: 30 0RF ondansetron 4 mg tablet,disintegrating 4 mg PO Q8H PRN (Reason: nausea and vomiting) Qty: 10 0RF <Bernadine Perdomo APRN - Last Filed: 11/11/24 14:40> Follow-up/Referrals: PHYSICIAN,FLUID DESIGNER [Non-Staff] - Tian Goodman MD [Physician] - (ORTHOPEDICS) <Bernadine Perdomo APRN - Last Filed: 11/11/24 14:40> Time of Disposition: 20:27 <Bernadine Perdomo APRN - Last Filed: 11/11/24 14:40> 20:27 <Yahaira Noble PA-C - Last Filed: 11/11/24 20:28>
--- NOTE | 2024-11-11 19:12 | PC.NURSE ---
Patient called for room assignment, no answer and not seen in waiting room.
[2024-11-11 19:32] VITALS: BP 119/74; PULSE 76; RESP 16; TEMP 36.5; O2SAT 98
[2024-11-11] MEDS: IBUPROFEN 600 MG TABLET PO (20:57)
[2024-11-11] MEDS: ACETAMINOPHEN 500 MG TABLET 1000 MG PO (20:57)
[2024-11-11 21:04] VITALS: BP 130/60; PULSE 68; RESP 16; TEMP 36.4; O2SAT 98
== END 2024-11-11 21:06 | disposition home or self-care (01) ==
PROVIDERS: Emergency Provider Physician Assistant
DX: S93.401A Sprain of unspecified ligament of right ankle, initial encounter (principal); Z87.891 Personal history of nicotine dependence; W17.89XA Other fall from one level to another, initial encounter
CPT/HCPCS: 73610; 73630; 99283; A9270

== ENCOUNTER 2025-03-29 20:39 | Emergency (ER) | payer OTHER, SELFPAY ==
--- OUTSIDE RECORDS SUMMARY | 2009-02-23 08:00 | XMS_ITS | Continuity of Care Document ---
Author Organization [facility] Address [address] [place] [address] Phone Care Team Providers Care Tab Card Press Operator Name Role Phone Hendrickson OD, Bo Unavailable Unavailable Procedures Procedure Date Eye Exam, New Patient Refraction Advance Directives Directive Yes / No Effective Date File Name No Information Encounters Encounter Description Practice Location Reason(s) For Visit Diagnoses Date Provider Providers Copied on Encounter [facility], [address], [place], [place], [id number], [place] tel:[phone] [facility] No Information 9-200 9 Hendrickson OD Bo. [address] , [address], [place], [address], [place]. tel:[phone] Family History Family Member Type Diagnosis Age At Onset No Information Payers Payer name Insurance type Covered green party ID Authoriza tion(s) Medicaid [facility] [id number] Social History Type Description Quantity Date Captured Comments Sex Female Smoking Status No Information Chief Complaint And Reason For Visit No Information Reason For Referral Reason For Referral No Information History Of Present Illness Encounter Date Complaint History Of Prese nt Illness No Information Functional Status Date Functional Assessmen t No Information Instructions Date Instruction Additional Infor mation No Information Assessments Type Assessment Date No Information Patient Care Teams Name Effective Dates (start - stop) Status Members No Information
--- OUTSIDE RECORDS SUMMARY | 2009-02-23 08:00 | XMS_ITS | Continuity of Care Document ---
Author Organization [facility] Address [address] [place] [address] Phone Care Team Providers Care Metal Fence Erector Name Role Phone Hendrickson OD, Bo Unavailable Unavailable Procedures Procedure Date Eye Exam, New Patient Refraction Advance Directives Directive Yes / No Effective Date File Name No Information Encounters Encounter Description Practice Location Reason(s) For Visit Diagnoses Date Provider Providers Copied on Encounter [facility], [address], [place], [place], [id number], [place] tel:[phone] [facility] No Information 9-200 9 Hendrickson OD Bo. [address] , [address], [place], [address], [place]. tel:[phone] Family History Family Member Type Diagnosis Age At Onset No Information Payers Payer name Insurance type Covered green party ID Authoriza tion(s) Medicaid [facility] [id number] Social History Type Description Quantity Date Captured [...]
--- NOTE | ~2025-03-29 | CT_ITS ---
CT abdomen pelvis w con Clinical History: lower abd pain, uti, leukocytosis . Comparison: 10/01/2024 Technique: Axial images lung bases to symphysis pubis 100 mL Omnipaque 350 Coronal, sagittal reformats CT images acquired with automatic exposure control for dose reduction DLP: 464 mGy-cm Findings: Lung bases: Clear. Visualized heart and pericardium: Unremarkable. Liver: Unremarkable. Gallbladder: Unremarkable. Spleen: Unremarkable. Pancreas: Unremarkable. Adrenal glands: Unremarkable. Kidneys: Right kidney- No hydronephrosis. No renal stones. Left kidney- No hydronephrosis. No renal stones. Distal esophagus/stomach: Unremarkable. Small bowel loops: Normal caliber and wall thickness. Colon: Normal caliber and wall thickness. Normal RLQ appendix. Large volume stool Nodes: No enlarged nodes. Peritoneum: No ascites. No free air. Urinary bladder: Wall thickening. Uterus: Unremarkable. Adnexa: No masses. Bones: No acute bony abnormality. Soft tissues: Unremarkable. Aorta: No aneurysm or dissection. IVC: Unremarkable. Main portal vein/SMV/splenic vein: Patent. IMPRESSION: 1. Cystitis. 2. No other acute abnormality. Reviewed, dictated and finalized at location R. ENGINEER
--- OUTSIDE RECORDS SUMMARY | 2025-03-29 20:41 | XMS_ITS | Clinical Summary ---
Author Organization [address] Address [address] [place] [id number] Care Team Providers Care Certified Technician Specialist Name Role Phone No, Physician Primary Care Provider [phone] Allergies No known active allergies Medications clindamycin (CLEOCIN) 300 mg capsuleIndicati ons:Skin/Soft Tissue Infection Take 1 capsule (300 mg total) by mouth 3 (three) times a day 30 capsule 11/15/2024 Active ibuprofen (ADVIL,MOTRIN) 600 mg tablet Take 1 tablet (600 mg total) by mouth every 6 (six) hours as needed for pain 30 tablet 11/15/2024 Active norgestimate-et hinyl estradioL (ORTHO TRI-CYCLEN) 0.18/0.215/0.25 mg-0.035mg (28) per tablet Take 1 tablet by mouth daily 60 tablet 01/15/2025 Active Encounters Date Type Department Care Team Description 01/15/2025 3:54 AM CDT - 01/15/2025 5:31 AM CDT Emergency [facility] Emergency Department [address] [place] [address] Dayan Rubio MD Menorrhagia with regular cycle (Primary Dx) Discharge Disposition: Discharge to home or self care from Last 3 Months Social History Tobacco Use Types Packs/Day Years Used Date Smoking Tobacco: Never Assessed Personal Safety Answer Date Recorded Have you ever been in or are you currently in a harmful physical or emotional relationship or is someone making you feel afraid or unsafe? 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 Gender Identity Not on file Sexual Orientation Not on file Obstetrics History Para Term AB IAB SAB Ectopic Multiple Livin g Live Births 1 1 Date Outcome GA Total Labor Labor/2nd/3rd Weight Sex Type Anes PTL Rose A1 A5 Name Clin Para Last Filed Vital Signs Vital Sign Reading Time Taken Comments Blood Pressure 111/67 01/15/2025 3:15 AM CDT Pulse 86 01/15/2025 3:15 AM CDT Temperature 36.6 C (97.9 F) 01/15/2025 3:15 AM CDT Respiratory Rate 18 01/15/2025 3:15 AM CDT Oxygen Saturation 97% 01/15/2025 3:15 AM CDT Inhaled Oxygen Concentration - - Weight 63.5 kg (140 lb) 01/15/2025 3:15 AM CDT Height 165.1 cm (5' 5) 01/15/2025 3:15 AM CDT Body Mass Index 23.3 01/15/2025 3:15 AM CDT Plan of Treatment Health Maintenance Due Date Last Done Comments Cervical Cancer Screening 2003 Depression Screening 2003 Hepatitis C Screening 2003 HPV Vaccines (1 - 3-dose series) 2018 Meningococcal B Vaccine (1 o f 2 - Standard) 2019 Regular Well Visit/Exam 18-64 2021 Influenza Vaccine (#1) 2025 DTaP/Tdap/Td Vaccine (7 - Td or Tdap) 12/07/2029 12/08/2019, 01/06/2008, 07/25/2004, Additional history exists Hepatitis B Screening Completed 2003 , 2003, 2003, Additional history exists Pneumococcal vaccine <65 Completed 005, 2003, 2003, Additional history exists Varicella Vaccines Completed 01/06/2008, 03/21/2004 Procedures Procedure Name Priority Date/Time Associated Diagnosis Comments URINALYSIS, MICROSCOPIC ONLY STAT 01/15/2025 4:24 AM CDT HCG, URINE, QUALITATIVE STAT 01/15/2025 4:24 AM CDT URINE CULTURE STAT 01/15/2025 4:24 AM CDT URINALYSIS AND REFLEX TO MICROSCOPIC AND CULTURE STAT 01/15/2025 4:24 AM CDT from Last 3 Months Results * (ABNORMAL) Urinalysis reflex to microscopic and culture Urine (01/15/2025 4:24 AM CDT) Color, ur Yellow Yellow Clarity, ur Turbid(A) Clear [facility] (NATHEN) Specific gravity, ur 1.023 1.003 - 1.030 [facility] (NATHEN) pH, urine 6.5 [facility] (NATHEN) Comment: Interpretive Data U rine pH is affected by diet, medications, systemic acid-base disturbances, and renal tubular function. pH may affect urinary stone formation. For example, urine pH below 6.0 may help reduce the tendency for calcium phosphate stones and pH greater than 6.0 may reduce the tendency for uric acid stone formation. Source: [facility] Current Interpretive Data was last revised on 2017 Protein, ur ql Trace Negative [facility] (NATHEN) Glucose, ur ql Negative Negative [facility] (NATHEN) Ketones, ur Negative Negative [facility] (NATHEN) Bilirubin, ur Negative Negative [facility] (NATHEN) Blood, ur 3+(A) Negative [facility] (NATHEN) Urobilinogen, ur <2.0 <2.0 mg/dL [facility] (NATHEN) Nitrite, ur Negative Negative [facility] (NATHEN) Leukocyte esterase, ur 4+(A) Negative [facility] (NATHEN) UA reflex comment Reflex to microscopic UA will be performed. [facility] (NATHEN) Urine 01/15/2025 4:24 AM CDT 01/15/2025 4:28 AM CDT us Dayan Rubio MD LAB MICROBIOLOGY - GENERAL ORDER MELI Final Result [facility] (NATHEN) 1 [facility] Department [place] [address] * hCG, urine, qualitative (01/15/2025 4:24 AM CDT) HCG, ur Negative Negative Urine 01/15/2025 4:24 AM CDT 01/15/2025 4:28 AM CDT Dayan Rubio MD LAB URINE ORDERABLES Final Resul t Performing Organization Address [facility] Co de Phone Number [facility] (NATHEN) 1 [facility] [place] [address] * (ABNORMAL) Urinalysis, microscopic only (01/15/2025 4:24 AM CDT) WBC, ur >50(A) 0 - 5 /HPF RBC, ur 21-50(A) 0 - 2 /HPF [facility] (NATHEN) Epithelial cells, squamous, ur 1-5 0 - 5 /HPF [facility] (NATHEN) Bacteria, ur Trace(A) [facility] (NATHEN) Mucous, ur Present(A) [facility] (NATHEN) Culture Reflex Comment Reflex to urine culture will be performed. [facility] (NATHEN) Urine 01/15/2025 4:24 AM CDT 01/15/2025 4:28 AM CDT Dayan Rubio MD LAB URINE ORDERABLES Final Resul t Performing Organization Address [facility] Co de Phone Number [facility] (NATHEN) 1 [facility] [place] [address] * (ABNORMAL) Urine culture Urine (01/15/2025 4:24 AM CDT) Report Final Report: Greater than or equal to 100,000 colonies/mL of Staphylococcus saprophyticus Routine susceptibility testing of Staphylococcus saprophyticus is not performed because infections respond to concentrations achieved in the urine of antimicrobials commonly used to treat uncomplicated urinary tract infections, such as nitrofurantoin, trimethoprim-sulfa methoxazole, or a fluoroquinolone. Plus growth of clinically insignificant bacterial vitaly. (.) Comment:Testing performed by : [facility], [address] [facility], [place]., [address] Organism STAPHYLOCOCCUS SAPROPHYTICUS [facility] (NATHEN) Organism PLUS GROWTH OF CLINICALLY INSIGNIFICANT VITALY. [facility] (NATHEN) Urine 01/15/2025 4:24 AM CDT 01/15/2025 8:44 AM CDT Narrative [facility] (NATHEN) - 01/17/2025 2:49 PM CDT Urine culture reflexed based upon urinalysis results. Testing performed by [facility] ([phone]) us Dayan Rubio MD LAB MICROBIOLOGY - GENERAL ORDER MELI Final Result [facility] (NATHEN) 1 [facility] Department [place] [address] from Last 3 Months Insurance Care Teams Certified Technician Specialist Relationship Specialty Start Date End Date No, Physician PCP - General 11/15/24
[2025-03-29 20:47] VITALS: BP 116/70; PULSE 83; RESP 20; TEMP 37.3; O2SAT 100
[2025-03-29 20:49] LABS: BEDSIDEPREGUCG Negative (Negative)
[2025-03-29 21:04] LABS: Hematocrit 42.9 % (37.0-47.0); Hemoglobin 14.4 g/dL (12.0-15.0); Immature Granulocyte Percent A 0.6 % (0-0.5); Lymphocytes Absolute Auto 1.06 K/mm3 (0.9-3.2); Mean Corpuscular HGB Conc 33.6 g/dl (32-36); Mean Corpuscular Hemoglobin 31.9 pg (26-34); Mean Corpuscular Volume 94.9 fl (80-100); Nucleated Red Blood Cells Absolute Auto 0.000 K/mm3 (0.0-0.012); Nucleated Red Blood Cells Perc 0.0 % (0.0-0.2); Platelet Count Result 289 k/mm3 (150-375); Red Blood Count 4.52 M/mm3 (4.2-5.4); White Blood Count 15.5 K/mm3 (4.5-10.0)
[2025-03-29 21:11] LABS: Add Urine Microscopic? YES; Appearance Urine Cloudy (Clear); Glucose Urine UA Negative (Negative); Leukocyte Esterase Ur 2+ LEU/UL (Negative); Nitrate Urine Positive (Negative); Non Pathogenic Casts 0-2; Specific Grav Ur 1.025 (1.001-1.035)
[2025-03-29 21:16] LABS: Alanine Aminotransferase 26 U/L (6-35); Albumin Level 4.9 g/dL (3.5-5.1); Alkaline Phosphatase 85 U/L (38-126); Anion Gap 8 mmol/L (4-12); Aspartate Amino Transferase 29 U/L (14-36); Bilirubin,Total 0.6 mg/dL (0.2-1.3); Blood Urea Nitrogen 14 mg/dL (7-17); Calcium 9.3 mg/dL (8.4-10.2); Carbon Dioxide 26 mmol/L (22-30); Chloride 102 mmol/L (98-107); Estimated CRCL calculation 81 ml/min; Estimated Glomerular Filt Rate > 60; Glucose 104 mg/dL (65-110); Lipase 77 U/L (23-300); Potassium 4.2 mmol/L (3.4-5.0); Sodium 136 mmol/L (137-145); Total Protein 8.4 g/dL (6.3-8.2)
[2025-03-29 23:53] VITALS: BP 115/66; PULSE 81; RESP 16; TEMP 37; O2SAT 95
[2025-03-29 23:54] VITALS: PULSE 83; RESP 18; O2SAT 100
[2025-03-30] MEDS: MORPHINE SULFATE (*CRX) 4 MG/ML INJ IV PUSH (01:27)
[2025-03-30] MEDS: SODIUM CHLORIDE 0.9% IV 1,000 ML 999 ML IV CONT (01:27)
[2025-03-30] MEDS: ONDANSETRON INJ 4 MG/2 ML VIAL IV PUSH (01:28)
[2025-03-30] MEDS: cefTRIAXone 1 GM in SODIUM CHLORIDE 0.9% IV 50 ML 100 ML IVPB (01:32)
--- NOTE | 2025-03-30 01:54 | ED_ITS ---
HPI - Abdominal Pain General Chief Complaint: Abdominal Pain <Yahaira Noble PA-C - Last Filed: 03/30/25 03:26> Stated Complaint: abd pain <NAOMIE Pereira Last Filed: 03/30/25 03:26> Time Seen by Provider: 03/30/25 00:00 <Yahaira Noble PA-C - Last Filed: 03/30/25 03:26> Source: patient <NAOMIE Pereira Last Filed: 03/30/25 03:26> Mode of arrival: ambulatory <NAOMIE Pereira Last Filed: 03/30/25 03:26> Limitations: no limitations <NAOMIE Pereira Last Filed: 03/30/25 03:26> History of Present Illness HPI narrative: Patient is a 20-year-old female who presents the ED with report of lower abdominal pain. Patient reports pain began around 6:00 p.m. tonight. Has been constant since then. Has not taken anything for pain. No radiation of pain. Denies ever having pain like this before. Denies nausea, vomiting, diarrhea, constipation, dysuria, hematuria, fevers. <Yahaira Noble PA-C - Last Filed: 03/30/25 03:26> Related Data Home Medications: Home Medications ?Medication ?Instructions ?Recorded ?Confirmed ?Last Taken ?Type aspirin 81 mg tablet,delayed 81 mg PO DAILY 01/28/20 0 01/28/20 Unknown History release (Madeleine Low Dose Aspirin) calcium 500 mg (as 1 tablet PO BID 01/28/2005/06 Unknown History carbonate)-vitamin D3 5 mcg (200 unit) tablet (Oysco 500/D) folic acid 1 mg tablet 4 mg PO DAILY 01/28/2001/27 Unknown History vit no.95-ferrous 1 tablet PO DAILY 01/28/20 01/28/20 Unknown History fumarate 28 mg-folic acid 800 mcg tablet () <NAOMIE Pereira Last Filed: 03/30/25 03:26> Allergies/Adverse Reactions: Allergies Allergy/AdvReac Type Severity Reaction Status Date / Time latex Allergy Itching Verified 11/11/24 14:25 <Yahaira Noble PA-C - Last Filed: 03/30/25 03:26> Review of Systems 2 Review of Systems: All systems reviewed & are unremarkable except as noted in HPI. 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 teenager <Yahaira Noble PA-C - Last Filed: 03/30/25 03:26> Family History Family History: Family History Grandparent Cervical cancer Mother Cervical cancer <Yahaira Noble PA-C - Last Filed: 03/30/25 03:26> Social History Social History: Social History Smoking packs per day: 1 Smoking cigarettes per day: 20.0 Years smoked: 2 Smoking pack-years: 2.00 Tobacco type: cigarettes Second hand tobacco smoke exposure: Yes Alcohol intake: never Substance use: former Substance use type: marijuana Living arrangements: with family Occupation/Education: student Gender identity (if verbalized by the patient): Female Sexual Orientation (if Verbalized by the Patient): Straight or Heterosexual Spiritual care concerns: No <Yahaira Noble PA-C - Last Filed: 03/30/25 03:26> Exam 2 Narrative: GENERAL: Uncomfortable appearing, well-nourished, moaning in pain. HEAD: Normocephalic, atraumatic. RESPIRATORY: Airway patent, respirations nonlabored. Clear to auscultation bilaterally, no rales, rhonchi, wheezing. CARDIOVASCULAR: Regular rate and rhythm without murmurs, rubs, or gallops. ABDOMINAL: Soft, diffuse tenderness with any palpation, no rebound, nondistended. Normoactive BS. MUSCULOSKELETAL: Moves all extremities. No gross deformities. SKIN: Warm, dry, normal color. NEURO: A&O X3. Speech clear. Steady gait. No ataxic movements. PSYCHIATRIC: Anxious, tearful. Normal interaction. <Yahaira Noble PA-C - Last Filed: 03/30/25 03:26> Course Course Emergency Course: Patient signed out to me pending CT imaging. This results as below notable for constipation. Patient assessed at bedside. She denies any dysuria. She is informed about her urinary tract infection as well as constipation and why these diagnoses often exist together. Encouraged to drink plenty of fluids and incorporate fiber into her diet as well as use a bowel regimen of stool softeners and laxative. She denies being on opiate therapy or using recreational narcotics. Given that she appears to be in discomfort, she was given a dose of MiraLax and magnesium citrate in addition to Bentyl before discharge. Does not have a PCP so given contact info for 1. <Radha Wooten MD - Last Filed: 03/30/25 04:36> Vital Signs Vital signs: Vital Signs Temperature 99.1 F 03/29/25 20:47 Pulse Rate 83 03/29/25 20:47 Respiratory Rate 20 03/29/25 20:47 Blood Pressure 116/70 03/29/25 20:47 Pulse Oximetry 100 03/29/25 20:47 Temperature 98.6 F 03/29/25 23:53 Pulse Rate 94 03/30/25 02:54 Respiratory Rate 18 03/30/25 02:54 Blood Pressure 107/57 L 03/30/25 02:54 Pulse Oximetry 100 03/30/25 02:54 <Yahaira Noble PA-C - Last Filed: 03/30/25 03:26> Vital Signs Temperature 99.1 F 03/29/25 20:47 Pulse Rate 83 03/29/25 20:47 Respiratory Rate 20 03/29/25 20:47 Blood Pressure 116/70 03/29/25 20:47 Pulse Oximetry 100 03/29/25 20:47 Temperature 98.6 F 03/29/25 23:53 Pulse Rate 94 03/30/25 02:54 Respiratory Rate 18 03/30/25 02:54 Blood Pressure 107/57 L 03/30/25 02:54 Pulse Oximetry 100 03/30/25 02:54 <Radha Wooten MD - Last Filed: 03/30/25 04:36> MDM - Abdominal Pain MDM Narrative Medical decision making narrative: Patient presented to ED with lower abdominal pain that began tonight. No significant associated symptoms. Has not taken anything for pain. Vital signs are stable upon arrival. Patient is moaning in pain, rolling around on stretcher. Pain control given. White blood cell count 15.5. Neutrophil predominance. No bandemia. CMP unremarkable. Stable kidney function. Stable electrolytes. Urinalysis concerning for infection, positive nitrates, 2+ leuk esterase, greater than 100 WBC, 4+ urine bacteria. Sent for culture. Given dose of Rocephin. Urine negative. UDS positive for cannabinoids and amphetamines. CT scan of abdomen/pelvis was obtained. Care signed out to Dr. Wooten at shift change pending stat rad CT results. < Yahaira Noble PA-C - Last Filed: 03/30/25 03:26> Medical Records Attestation: I reviewed the patient's medical records. <Yahaira Noble PA-C - Last Filed: 03/30/25 03:26> Lab Data Attestation: I reviewed the patient's lab results. <Yahaira Noble PA-C - Last Filed: 03/30/25 03:26> Result diagrams: 03/29/25 20:57 03/29/25 20:57 <Yahaira Noble PA-C - Last Filed: 03/30/25 03:26> Labs: Lab Results 03/29/25 03/29/25 03/29/25 Range/Units 20:48 20:50 20:57 WBC 15.5 H (4.5-10.0) K/mm3 RBC 4.52 (4.2-5.4) M/mm3 Hgb 14.4 (12.0-15.0) g/dL Hct 42.9 (37.0-47.0) % MCV 94.9 (80-100) fl MCH 31.9 (26-34) pg MCHC 33.6 (32-36) g/dl RDW 13.1 (11.5-14.5) % Plt Count 289 (150-375) k/mm3 MPV 9.3 (7.4-10.4) fl Immature Gran % (Auto) 0.6 H (0-0.5) % Neut % (Auto) 86.2 H (45.5-73.1) % Lymph % (Auto) 6.9 L (18.3-44.2) % Russell % (Auto) 4.4 (2.6-8.5) % Eos % (Auto) 1.6 (0-4.4) % Baso % (Auto) 0.3 (0.2-1.2) % Lymph # (Auto) 1.06 (0.9-3.2) K/mm3 Russell # (Auto) 0.7 H (0.1-0.6) K/mm3 Eos # (Auto) 0.3 (0-0.3) K/mm3 Baso # (Auto) 0.1 (0.0-0.1) K/mm3 Abs Immat Gran (auto) 0.10 H (0.00-0.031) K/mm3 Absolute Neuts (auto) 13.3 H (1.3-6.7) K/mm3 Absolute Nucleated RBC 0.000 (0.0-0.012) K/mm3 Nucleated RBC % 0.0 (0.0-0.2) % Sodium 136 L (137-145) mmol/L Potassium 4.2 (3.4-5.0) mmol/L Chloride 102 (98-107) mmol/L Carbon Dioxide 26 (22-30) mmol/L Anion Gap 8 (4-12) mmol/L BUN 14 (7-17) mg/dL Creatinine 0.86 (0.7-1.0) mg/dL Estim Creat Clear Calc 81 ml/min Estimated GFR > 60 (59 - ) Glucose 104 (65-110) mg/dL Calcium 9.3 (8.4-10.2) mg/dL Total Bilirubin 0.6 (0.2-1.3) mg/dL AST 29 (14-36) U/L ALT 26 (6-35) U/L Alkaline Phosphatase 85 (38-126) U/L Total Protein 8.4 H (6.3-8.2) g/dL Albumin 4.9 (3.5-5.1) g/dL Lipase 77 (23-300) U/L Urine Color Yellow (Yellow) Urine Appearance Cloudy H (Clear) Urine pH 6.5 (5.0-9.0) Ur Specific [place] 1.025 (1.001-1.035) Urine Protein Trace (Negative) mg/dL Urine Glucose (UA) Negative (Negative) mg/dL Urine Ketones Negative (Negative) mg/dL Ur Blood (Man) Negative (Negative) Urine Nitrate Positive H (Negative) Urine Bilirubin Negative (Negative) Urine Urobilinogen 0.2 (<2.0) mg/dL Leukocyte Esterase Rfl 2+ H (Negative) CHASE/UL Urine RBC 0-2 (0-2) /hpf Urine WBC >100 H (0-3) /hpf Ur Squamous Epith Cells Occasional (Few) /hpf Urine Bacteria 4+ /hpf Urine Casts 0-2 POC Urine HCG, Qual Negative (Negative) Urine Opiates Screen Negative (Negative) Urine Methadone Screen Negative (Negative) Ur Barbiturates Screen Negative (Negative) Ur Phencyclidine Scrn Negative (Negative) Ur Amphetamine Screen Positive A (Negative) U Benzodiazepines Scrn Negative (Negative) Urine Cocaine Screen Negative (Negative) U Cannabinoids Screen Positive A (Negative) <Yahaira Noble PA-C - Last Filed: 03/30/25 03:26> Lab Results 03/29/25 03/29/25 03/29/25 Range/Units 20:48 20:50 20:57 WBC 15.5 H (4.5-10.0) K/mm3 RBC 4.52 (4.2-5.4) M/mm3 Hgb 14.4 (12.0-15.0) g/dL Hct 42.9 (37.0-47.0) % MCV 94.9 (80-100) fl MCH 31.9 (26-34) pg MCHC 33.6 (32-36) g/dl RDW 13.1 (11.5-14.5) % Plt Count 289 (150-375) k/mm3 MPV 9.3 (7.4-10.4) fl Immature Gran % (Auto) 0.6 H (0-0.5) % Neut % (Auto) 86.2 H (45.5-73.1) % Lymph % (Auto) 6.9 L (18.3-44.2) % Russell % (Auto) 4.4 (2.6-8.5) % Eos % (Auto) 1.6 (0-4.4) % Baso % (Auto) 0.3 (0.2-1.2) % Lymph # (Auto) 1.06 (0.9-3.2) K/mm3 Russell # (Auto) 0.7 H (0.1-0.6) K/mm3 Eos # (Auto) 0.3 (0-0.3) K/mm3 Baso # (Auto) 0.1 (0.0-0.1) K/mm3 Abs Immat Gran (auto) 0.10 H (0.00-0.031) K/mm3 Absolute Neuts (auto) 13.3 H (1.3-6.7) K/mm3 Absolute Nucleated RBC 0.000 (0.0-0.012) K/mm3 Nucleated RBC % 0.0 (0.0-0.2) % Sodium 136 L (137-145) mmol/L Potassium 4.2 (3.4-5.0) mmol/L Chloride 102 (98-107) mmol/L Carbon Dioxide 26 (22-30) mmol/L Anion Gap 8 (4-12) mmol/L BUN 14 (7-17) mg/dL Creatinine 0.86 (0.7-1.0) mg/dL Estim Creat Clear Calc 81 ml/min Estimated GFR > 60 (59 - ) Glucose 104 (65-110) mg/dL Calcium 9.3 (8.4-10.2) mg/dL Total Bilirubin 0.6 (0.2-1.3) mg/dL AST 29 (14-36) U/L ALT 26 (6-35) U/L Alkaline Phosphatase 85 (38-126) U/L Total Protein 8.4 H (6.3-8.2) g/dL Albumin 4.9 (3.5-5.1) g/dL Lipase 77 (23-300) U/L Urine Color Yellow (Yellow) Urine Appearance Cloudy H (Clear) Urine pH 6.5 (5.0-9.0) Ur Specific [place] 1.025 (1.001-1.035) Urine Protein Trace (Negative) mg/dL Urine Glucose (UA) Negative (Negative) mg/dL Urine Ketones Negative (Negative) mg/dL Ur Blood (Man) Negative (Negative) Urine Nitrate Positive H (Negative) Urine Bilirubin Negative (Negative) Urine Urobilinogen 0.2 (<2.0) mg/dL Leukocyte Esterase Rfl 2+ H (Negative) CHASE/UL Urine RBC 0-2 (0-2) /hpf Urine WBC >100 H (0-3) /hpf Ur Squamous Epith Cells Occasional (Few) /hpf Urine Bacteria 4+ /hpf Urine Casts 0-2 POC Urine HCG, Qual Negative (Negative) Urine Opiates Screen Negative (Negative) Urine Methadone Screen Negative (Negative) Ur Barbiturates Screen Negative (Negative) Ur Phencyclidine Scrn Negative (Negative) Ur Amphetamine Screen Positive A (Negative) U Benzodiazepines Scrn Negative (Negative) Urine Cocaine Screen Negative (Negative) U Cannabinoids Screen Positive A (Negative) <Radha Wooten MD - Last Filed: 03/30/25 04:36> Imaging Data Attestation: I personally reviewed and interpreted this imaging study as follows: < Yahaira Noble PA-C - Last Filed: 03/30/25 03:26> Radiologist's impression: CT Stat Rad w/ contrast: Solid organs are within normal limits. No bowel obstruction. Significant stool in the colon is concerning for constipation. Normal appendix. No fracture. Prominence of the bladder wall is concerning for cystitis. Clinical correlation is recommended. No incidental findings. < Radha Wooten MD - Last Filed: 03/30/25 04:36> Discharge Plan Discharge Clinical Impression: Bilateral lower abdominal pain, Constipation UTI (urinary tract infection) Qualifiers: Urinary tract infection type: acute cystitis Hematuria presence: without hematuria Qualified Code(s): N30.00 - Acute cystitis without hematuria <Yahaira Noble PA-C - Last Filed: 03/30/25 03:26> Patient Disposition: Home <Yahaira Noble PA-C - Last Filed: 03/30/25 03:26> Condition: Stable <Yahaira Noble PA-C - Last Filed: 03/30/25 03:26> Instructions: Antibiotic Form, Constipation (ED), Urinary Tract Infection in Women (ED), High Fiber Diet (ED), Abdominal Pain (ED) <Yahaira Noble PA-C - Last Filed: 03/30/25 03:26> Additional Instructions: Take antibiotics as prescribed for urinary tract infection. You received your first dose in the ED. Stay well hydrated. Continue Tylenol/ibuprofen as needed for pain. Follow-up with your primary care doctor for further evaluation urine culture results. Return for new or worsening concerns. The name of a primary care physician is listed below since you do not have 1. You were quite constipated. It is important you drink plenty of fluids and stay hydrated and incorporate fiber foods in your diet. In addition, use supplemental fiber/psyllium/Metamucil, add MiraLax, and if still not having a bowel movement in over still in pain, use laxative magnesium citrate. <NAMOIE Pereira Last Filed: 03/30/25 03:26> Patient Language: Vincentian <Yahaira Noble PA-C - Last Filed: 03/30/25 03:26> Prescriptions: New cephalexin 500 mg capsule 500 mg PO Q12H 7 Days Qty: 14 0RF Metamucil 3.4 gram/5.4 gram powder 1 tbsp PO DAILY Qty: 660 0RF Rx Instructions: mix into at least 8 oz of water or juice before administering magnesium citrate Solution 150 ml PO DAILY PRN (Reason: constipation) Qty: 296 0RF polyethylene glycol 3350 [Miralax] 17 gram/dose powder 17 g PO DAILY Qty: 119 0RF dicyclomine 10 mg capsule 10 mg PO BID PRN (Reason: abdominal pain) Qty: 10 0RF No Action aspirin [Madeleine Low Dose Aspirin] 81 mg Tablet,Delayed Release (Dr/Ec) 81 mg PO DAILY folic acid 1 mg Tablet 4 mg PO DAILY calcium carbonate-vitamin D3 [Oysco 500/D] 500 mg(1,250mg) -200 unit Tablet 1 tablet PO BID PNV no.95-ferrous fumarate-FA [] 28 mg iron- 800 mcg Tablet 1 tablet PO DAILY sulfamethoxazole-trimethoprim [Bactrim DS] 800-160 mg tablet 1 tablet PO Q12H Qty: 14 0RF ibuprofen 600 mg tablet 600 mg PO TID PRN (Reason: fever or pain) Qty: 30 0RF ondansetron 4 mg tablet,disintegrating 4 mg PO Q8H PRN (Reason: nausea and vomiting) Qty: 10 0RF <Yahaira Noble PA-C - Last Filed: 03/30/25 03:26> Follow-up/Referrals: PHYSICIAN,HOME PARAPROFESSIONAL [Primary Care Provider, Internal Medicine] Andrew Zapata MD [Physician, Family Practice] Referral Note: PRIMARY CARE <Yahaira Noble PA-C - Last Filed: 03/30/25 03:26> Stand Alone Forms: Work/School Release IP <Yahaira Noble PA-C - Last Filed: 03/30/25 03:26> Time of Disposition: 04:32 <Yahaira Noble PA-C - Last Filed: 03/30/25 03:26> 04:32 <Radha Wooten MD - Last Filed: 03/30/25 04:36>
[2025-03-30 02:21] LABS: Cannabinoid Screen Urine Positive (Negative)
[2025-03-30 02:54] VITALS: BP 107/57; PULSE 94; RESP 18; O2SAT 100
--- NOTE | 2025-03-30 04:17 | PC.NURSE ---
pt lying on stretcher with eyes closed, respirations even and unlabored.
[2025-03-30] MEDS: DICYCLOMINE HCL 10 MG CAPSULE PO (04:51)
[2025-03-30] MEDS: MAGNESIUM CITRATE 300 ML BTL 150 ML PO (04:52)
[2025-03-30 04:58] VITALS: BP 106/71; PULSE 97; RESP 16; O2SAT 99
== END 2025-03-30 05:05 | disposition home or self-care (01) ==
PROVIDERS: Physician Assistant; Emergency Provider Student in an Organized Health Care Education/Training Program
DX: N30.00 Acute cystitis without hematuria (principal); K59.00 Constipation, unspecified; R10.32 Left lower quadrant pain; R10.31 Right lower quadrant pain; F17.210 Nicotine dependence, cigarettes, uncomplicated
CPT/HCPCS: 36415; 74177; 80053; 80307; 81001; 81025; 83690; 85025; 87086; 87186; 96365; 96375; 99284; A9270; J0696; J2270; J2405; J7030; Q9967

== ENCOUNTER 2025-05-11 05:09 | Emergency (ER) | payer OTHER, SELFPAY ==
--- OUTSIDE RECORDS SUMMARY | 2025-05-10 03:22 | XMS_ITS | Encounter Summary ---
Author Organization [facility] Healthcare Address [address] [place] [id number] Care Team Providers Care Oxyacetylene Torch Operator Name Role Phone No, Physician Primary Care Provider [phone] Reason for Visit * Reason Comments Wound Check Encounter Details Date Type Department Care Team (Late st Contact Info) Description 05/10/2025 3:22 AM ADMISSIONS COUNSELOR - 05/10/2025 3:52 AM ADMISSIONS COUNSELOR [facility] Emergency Department [address] [place] [address] Roderick Lobato MD [address] [place] [address] Cellulitis of face (Primary Dx) Discharge Disposition: Discharge to home or self care Social History Tobacco Use Types Packs/Day Years Used Date Smoking Tobacco: Never Assessed Personal Safety Answer Date Recorded Have you ever been in or are you currently in a harmful physical or emotional relationship or is someone making you feel afraid or unsafe? Denies 05/10/2025 Comments Unknown Sex and Gender Information Value Date Recorded Sex Assigned at Not on file Legal Sex Female 11:59 AM ADMISSIONS COUNSELOR Gender Identity Not on file Sexual Orientation Not on file documented as of this encounter Last Filed Vital Signs Vital Sign Reading Time Taken Comments Blood Pressure 133/75 05/10/2025 3:17 AM ADMISSIONS COUNSELOR Pulse 112 05/10/2025 3:17 AM ADMISSIONS COUNSELOR Temperature 36.5 C (97.7 F) 05/10/2025 3:17 AM ADMISSIONS COUNSELOR Respiratory Rate 16 05/10/2025 3:17 AM ADMISSIONS COUNSELOR Oxygen Saturation 98% 05/10/2025 3:17 AM ADMISSIONS COUNSELOR Inhaled Oxygen Concentration - - Weight 63.5 kg (140 lb) 05/10/2025 3:17 AM ADMISSIONS COUNSELOR Height 165.1 cm (5' 5) 05/10/2025 3:17 AM ADMISSIONS COUNSELOR Body Mass Index 23.3 05/10/2025 3:17 AM ADMISSIONS COUNSELOR documented in this encounter Functional Status * Encounter Related Suicide Attempt/Behavior: Whenever possible, conduct screening in private to create a confidential environment. Question Answer Date of Assessment Author Is the patient being treated today because it is known or suspected that they prepared, started, or tried to end their life? No 05/10/2025 3:19 AM Cali Bridges RN * [place] Suicide Severity Rating Scale (Recent Screener) Question Answer Date of Assessment Author 1. In the past month, have y ou wished you were or that you could go to sleep and not wake up? No 05/10/2025 3:19 AM Yolanda Carranza RN 2. In the past month, have y ou actually had any thoughts of killing yourself? No 05/10/2025 3:19 AM Yolanda Bridges RN 6. Have you ever done anythi ng, started to do anything, or prepared to do anything to end your life? No 05/10/2025 3:19 AM Yolanda Bridges RN * Suicide Risk Level Answer Date of Assessment Author No risk level 05/10/2025 3:19 AM Yolanda Bridges RN * Integumentary Question Answer Date of Assessment Author Integumentary (WDL) X 05/10/2025 3:37 AM Anne Mcfadden RN * Fall Risk Assessment Tool - MEDFRAT Question Answer Date of Assessment Author Prior Fall Event (Autopopulated from EMR) None found 05/10/2025 3:21 AM Cali Bridges RN History of falling in last 3 months, including since admission 0 05/10/2025 3:21 AM Yolanda Bridges RN Confusion or disorientation 0 05/10/2025 3: 21 AM Yolanda Bridges RN Intoxicated or sedated 0 05/10/2025 3:21 AM Yolanda Bridges RN Impaired gait 0 05/10/2025 3:21 AM Yolanda Toth RN Mobility assist device used 0 05/10/2025 3: 21 AM ADMISSIONS COUNSELOR Yolanda Lugo RN Altered elimination 0 05/10/2025 3:21 AM T Yolanda Lugo RN Fall risk score: (1-2 low risk), (3-4 moderate risk), (5 or more high risk) 0 05/10/2025 3:21 AM ADMISSIONS COUNSELOR Yolanda Lugo RN documented as of this encounter Discharge Instructions * Discharge Instructions* Roderick Lobato MD - 05/10/2025 3:44 AM ADMISSIONS COUNSELOR Take antibiotics as directed. Take naproxen as needed for pain. Follow up with your primary care doctor. If you do not have a primary care doctor call [facility] referral line [phone]. SSIONS COUNSELOR * Attachments The following attachments cannot be sent through Care Everywhere. * Cellulitis, Facial ([place]ib[place]) documented in this encounter Medications at Time of Discharge clindamycin (CLEOCIN) 300 mg capsuleIndication s:Skin/Soft Tissue Infection Take 1 capsule (300 mg total) by mouth 3 (three) times a day 30 capsule 11/15/2024 ibuprofen (ADVIL,MOTRIN) 600 mg tablet Take 1 tablet (600 mg total) by mouth every 6 (six) hours as needed for pain 30 tablet 11/15/2024 naproxen (NAPROSYN) 500 mg tablet Take 1 tablet (500 mg total) by mouth 2 (two) times a day as needed for pain Take with food. 30 tablet 05/10/2025 sulfamethoxazole- trimethoprim (BACTRIM) 800-160 mg per tablet Take 1 tablet by mouth 2 (two) times a day for 10 days smx-tmp DS (BACTRIM) 800-160 mg tabs 20 tablet 05/10/2025 05/20/2025 documented as of this encounter Ordered Prescriptions Prescription Sig Dispense Quantity Refills Last Filled Start Date End Date naproxen (NAPROSYN) 500 mg tablet Take 1 tablet (500 mg total) by mouth 2 (two) times a day as needed for pain Take with food. 30 tablet 05/10/2025 sulfamethoxazole-t rimethoprim (BACTRIM) 800-160 mg per tablet Take 1 tablet by mouth 2 (two) times a day for 10 days smx-tmp DS (BACTRIM) 800-160 mg tabs 20 tablet 05/10/2025 05/20/2025 documented in this encounter Discharge Disposition Disposition Code Departure Means Destination Comment s Discharge to home or self care documented in this encounter ED Notes * Roderick Lobato MD - 05/10/2025 3:31 AM CST HPI Chief Complaint Patient presents with Wound Check Patient had an abscess to the right face a week ago which she popped. Yesterday she developed another red spot lower on the face. It is getting more swollen. No fever. Patient History: No past medical history on file. Review of Systems Review of Systems Constitutional: Negative for chills and fever. HENT: Negative for congestion, rhinorrhea and sore throat. Eyes: Negative for pain. Respiratory: Negative for cough and shortness of breath. Cardiovascular: Negative for chest pain and leg swelling. Gastrointestinal: Negative for abdominal pain, diarrhea, nausea and vomiting. Genitourinary: Negative for difficulty urinating. Musculoskeletal: Negative for myalgias. Skin: Positive for wound. Negative for rash. Neurological: Negative for dizziness and headaches. Psychiatric/Behavioral: Negative for behavioral problems. Physical Exam ED Triage Vitals [05/10/25 0317] Temp Pulse Resp BP SpO2 36.5 ??C (97.7 ??F) 112 16 133/75 98 % Temp src Heart Rate Source Patient Position BP Location FiO2 (%) -- -- -- -- -- Height Height Method Weight Weight Method 1.651 m (5' 5) Stated 63.5 kg (140 lb) Stated Physical Exam Vitals and nursing note reviewed. Constitutional: General: She is not in acute distress. Appearance: She is well-developed. HENT: Head: Normocephalic and atraumatic. Comments: Healing small abscess to right forehead. Right cheek has a 1 cm area of erythema with central purulent area. Eyes: Conjunctiva/sclera: Conjunctivae normal. Cardiovascular: Rate and Rhythm: Normal rate and regular rhythm. Heart sounds: No murmur heard. Pulmonary: Effort: Pulmonary effort is normal. No respiratory distress. Breath sounds: Normal breath sounds. Abdominal: Palpations: Abdomen is soft. Tenderness: There is no abdominal tenderness. Musculoskeletal: General: No swelling. Cervical back: Neck supple. Skin: General: Skin is warm and dry. Capillary Refill: Capillary refill takes less than 2 seconds. Neurological: Mental Status: She is alert. Psychiatric: Mood and Affect: Mood normal. MDM Medical Decision Making Patient has 2 lesions on the right side of the face. Amount and/or Complexity of Data Reviewed Discussion of management or test interpretation with external provider(s): Differential diagnosis: Abscess, cellulitis. No large fluid collection on ultrasound. I did a small I and D with needle. Will prescribe Bactrim. Risk Prescription drug management. ED Course as of 05/10/25408 Time: 05/10 409 Comment: Bedside Ultrasound: No large fluid collection. By: Roderick Lobato MD Final diagnoses: Cellulitis of face Roderick Lobato MD 05/10/25406 Roderick Lobato MD 05/10/25 0410 SSIONS COUNSELOR SSIONS COUNSELOR * Yolanda Lugo RN - 05/10/2025 3:17 AM CST Pt reports abscess to R shinto that started today. Pt states it has been getting bigger and more painful. Pt denies drainage. Pt reports pain is radiating to R ear and teeth. Site is red. Pt is ambulatory. GCS 15 SSIONS COUNSELOR SSIONS COUNSELOR documented in this encounter Miscellaneous Notes * ED Procedure Note - Roderick Lobato MD - 05/10/2025 3:52 AM CSTAssociated Order(s): Incision and Drainage Procedure Incision and Drainage Date/Time: 05/10/2025 4:08 AM Performed by: Roderick Lobato MD Authorized by: Roderick Lobato MD Type: Abscess Location: Head Head location: Face Procedure prep: Alcohol. Anesthesia method: None Needle aspiration: yes Needle size: 20 G Drainage: Purulent Drainage amount: Scant Packing materials: None Patient tolerance of procedure: Tolerated well, no immediate complications Roderick Lobato MD 05/10/25 0408 SSIONS COUNSELOR documented in this encounter Plan of Treatment Pending Results Name Type Priority Associated Diagnoses Date /Time Aerobic culture and gram stain Abscess Face Microbiology Routine 05/10/2025 3:49 AM ADMISSIONS COUNSELOR documented as of this encounter Procedures Procedure Name Priority Date/Time Associated Diagnosis Comments [place] INCISION & DRAINAGE ABSCESS SIMPLE/SINGLE Routine 05/10/2025 4:08 AM ADMISSIONS COUNSELOR AEROBIC CULTURE AND GRAM STAIN Routine 05/10/2025 3:49 AM ADMISSIONS COUNSELOR documented in this encounter Results * [place] INCISION & DRAINAGE ABSCESS SIMPLE/SINGLE (05/10/2025 4:08 AM ADMISSIONS COUNSELOR) Narrative Roderick Lobato MD - 05/10/2025 4:08 AM ADMISSIONS COUNSELOR Roderick Lobato MD 05/10/2025 4:08 AM Incision and Drainage Date/Time: 05/10/2025 4:08 AM Performed by: Roderick Lobato MD Authorized by: Roderick Lobato MD Type: Abscess Location: Head Head location: Face Procedure prep: Alcohol. Anesthesia method: None Needle aspiration: yes Needle size: 20 G Drainage: Purulent Drainage amount: Scant Packing materials: None Patient tolerance of procedure: Tolerated well, no immediate complications Roderick Lobato MD IN CLINIC/BEDSIDE ORDERABLES Final Result documented in this encounter Visit Diagnoses Diagnosis Cellulitis of face- Primary Cellulitis and abscess of face documented in this encounter Care Teams Oxyacetylene Torch Operator Relationship Specialty Start Date End Date No, Physician PCP - General 11/15/24 documented as of this encounter
--- OUTSIDE RECORDS SUMMARY | 2025-05-10 03:22 | XMS_ITS | Encounter Summary ---
Author Organization [facility] Healthcare Address [address] [place] [address] Care Team Providers Care Optical Instrument Assembler Name Role Phone No, Physician Primary Care Provider [phone] Reason for Visit * Reason Comments Wound Check Encounter Details Date Type Department Care Team (Late st Contact Info) Description 05/10/2025 3:22 AM BUSINESS PERFORMANCE ADVISOR - 05/10/2025 3:52 AM BUSINESS PERFORMANCE ADVISOR Emergency [facility] Emergency Department [address] [place] [address] Roderick Lobato MD [address] [place] [address] Cellulitis of face (Primary Dx) Discharge Disposition: [...] on file Legal Sex Female 11:59 AM BUSINESS PERFORMANCE ADVISOR Gender Identity Not on file Sexual Orientation Not on file documented as of this encounter Last Filed Vital Signs Vital Sign Reading Time Taken Comments Blood Pressure 133/75 05/10/2025 3:17 AM BUSINESS PERFORMANCE ADVISOR Pulse 112 05/10/2025 3:17 AM BUSINESS PERFORMANCE ADVISOR Temperature 36.5 C (97.7 F) 05/10/2025 3:17 AM BUSINESS PERFORMANCE ADVISOR Respiratory Rate 16 05/10/2025 3:17 AM BUSINESS PERFORMANCE ADVISOR Oxygen Saturation 98% 05/10/2025 3:17 AM BUSINESS PERFORMANCE ADVISOR Inhaled Oxygen Concentration - - Weight 63.5 kg (140 lb) 05/10/2025 3:17 AM BUSINESS PERFORMANCE ADVISOR Height 165.1 cm (5' 5) 05/10/2025 3:17 AM BUSINESS PERFORMANCE ADVISOR Body Mass Index 23.3 05/10/2025 3:17 AM BUSINESS PERFORMANCE ADVISOR documented in this encounter Functional Status * Encounter Related Suicide Attempt/Behavior: Whenever possible, conduct screening in private to create a confidential environment. Question Answer Date of Assessment Author Is the patient being treated today because it is known or suspected that they prepared, started, or tried to end their life? No 05/10/2025 3:19 AM Cali Bridges RN * [place] Suicide Severity Rating Scale (Recent Screener) Question [...] device used 0 05/10/2025 3: 21 AM BUSINESS PERFORMANCE ADVISOR Yolanda Lugo RN Altered elimination 0 05/10/2025 3:21 AM T Yolanda Lugo RN Fall risk score: (1-2 low risk), (3-4 moderate risk), (5 or more high risk) 0 05/10/2025 3:21 AM BUSINESS PERFORMANCE ADVISOR Yolanda Lugo RN documented as of this encounter Discharge Instructions * Discharge Instructions* Roderick Lobato MD - 05/10/2025 3:44 AM BUSINESS PERFORMANCE ADVISOR Take antibiotics as directed. Take naproxen as needed for pain. Follow up with your primary care doctor. If you do not have a primary care doctor call [facility] referral line [phone]. NESS PERFORMANCE ADVISOR * Attachments The following attachments cannot be sent through Care Everywhere. * Cellulitis, Facial ([place]ominican) documented in this encounter Medications at Time [...] MD 05/10/25406 Roderick Lobato MD 05/10/25 0410 NESS PERFORMANCE ADVISOR NESS PERFORMANCE ADVISOR * Yolanda Lugo RN - 05/10/2025 3:17 AM CST Pt reports abscess to R hinduism that started today. Pt states it has been getting bigger and more painful. Pt denies drainage. Pt reports pain is radiating to R ear and teeth. Site is red. Pt is ambulatory. GCS 15 NESS PERFORMANCE ADVISOR NESS PERFORMANCE ADVISOR documented in this encounter Miscellaneous Notes * [...] immediate complications Roderick Lobato MD 05/10/25 0408 NESS PERFORMANCE ADVISOR documented in this encounter Plan of Treatment Pending Results Name Type Priority Associated Diagnoses Date /Time Aerobic culture and gram stain Abscess Face Microbiology Routine 05/10/2025 3:49 AM BUSINESS PERFORMANCE ADVISOR documented as of this encounter Procedures Procedure Name Priority Date/Time Associated Diagnosis Comments [place] INCISION & DRAINAGE ABSCESS SIMPLE/SINGLE Routine 05/10/2025 4:08 AM BUSINESS PERFORMANCE ADVISOR AEROBIC CULTURE AND GRAM STAIN Routine 05/10/2025 3:49 AM BUSINESS PERFORMANCE ADVISOR documented in this encounter Results * [place] INCISION & DRAINAGE ABSCESS SIMPLE/SINGLE (05/10/2025 4:08 AM BUSINESS PERFORMANCE ADVISOR) Narrative Roderick Lobato MD - 05/10/2025 4:08 AM BUSINESS PERFORMANCE ADVISOR Roderick Lobato MD 05/10/2025 4:08 AM Incision [...] face documented in this encounter Care Teams Optical Instrument Assembler Relationship Specialty Start Date End Date No, Physician PCP - General 11/15/24 documented as of this encounter
[2025-05-11 05:11] VITALS: BP 130/70; PULSE 119; RESP 18; TEMP 36.6; O2SAT 100
--- OUTSIDE RECORDS SUMMARY | 2025-05-11 05:11 | XMS_ITS | Patient Health Record ---
Author Organization [facility] Address [address] [place] [address] Phone [phone] Care Team Providers Care Customer Sales Representative Name Role Phone Alma Edward Primary Care Provider [phone] Teresa Cavazos LCSW Unavailable [phone] Ponce Solano Unavailable Allergies No Known Allergies Results Component Value Reference Range Flag Notes 14 Panel Urine Drug Screen Order date: 12/08/2024 Reviewed date:12/08/2024 03:51:37 PM Interpretation: Performing Lab: Notes/Report: THC POS HORTENSIA neg MOP (OPI) neg AMP POS MET POS BAR neg BZO neg MDMA POS MTD neg OXY neg PCP neg BUP neg TCA neg FTY neg Breathalyzer Order date: 12/08/2024 Reviewed date:12/08/2024 03:39:10 PM Interpretation: Performing Lab: Notes/Report: ASH 0.000 Test, Urine Order date: 12/08/2024 Reviewed date:12/08/2024 03:52:00 PM Interpretation: Performing Lab: Notes/Report: Test, Urine Negative Negative - Negative QuantiFERON-TB Gold Plus ([id number]) Order date: 12/08/2024 Reviewed date:12/13/2024 02:38:26 PM Interpretation: Performing Lab:[facility] [place], [address] [facility], [place], Phone - [phone], Director - [place] Notes/Report: QuantiFERON Incubation Incubation performed. QuantiFERON-TB Gold Plus Negative Negative No response to M tuberculosis antigens detected. Infection with M tuberculosis is unlikely, but high risk individuals should be considered for additional testing (ATS/IDSA/CDC Clinical Practice Guidelines, 2017). The reference range is an Antigen minus Nil result of <0.35 IU/mL. Chemiluminescence immunoassay methodology QuantiFERON Criteria QuantiFERON-TB Gold Plus is a qualitative indirect test for M tuberculosis infection (including disease) and is intended for use in conjunction with risk assessment, radiography, and other medical and diagnostic evaluations. The QuantiFERON-TB Gold Plus result is determined by subtracting the Nil value from either TB antigen (Ag) value. The Mitogen tube serves as a control for the test. QuantiFERON TB1 Ag Value 0.03 QuantiFERON TB2 Ag Value 0.02 QuantiFERON Nil Value 0.02 QuantiFERON Mitogen Value >10.00 CMP 14 Comprehensive Metabol ic Panel* Order date: 12/08/2024 Reviewed date:12/13/2024 02:38:26 PM Interpretation: Performing Lab:[facility] [place], [address] [facility], [place], Phone - [phone], Director - [place] Notes/Report: Glucose 65 70-99 mg/dL L BUN 10 6-20 mg/dL Creatinine 0.94 0.57-1.00 mg/dL eGFR 89 >59 mL/min/1.73 BUN/Creatinine Ratio 11 9-23 Sodium 142 134-144 mmol/L Potassium 4.8 3.5-5.2 mmol/L Chloride 105 96-106 mmol/L Carbon Dioxide, Total 23 20-29 mmol/L Calcium 9.9 8.7-10.2 mg/dL Protein, Total 6.8 6.0-8.5 g/dL Albumin 4.4 4.0-5.0 g/dL Globulin, Total 2.4 1.5-4.5 g/dL Bilirubin, Total 0.5 0.0-1.2 mg/dL Alkaline Phosphatase 92 44-121 IU/L AST (SGOT) 18 0-40 IU/L ALT (SGPT) 15 0-32 IU/L CBC With Differential/Platel et* Order date: 12/08/2024 Reviewed date:12/13/2024 02:38:26 PM Interpretation: Performing Lab:[facility] [place], [address] [facility], [place], Phone - [phone], Director - [place] Notes/Report: WBC 5.5 3.4-10.8 x10E3/uL RBC 4.57 3.77-5.28 x10E6/uL Hemoglobin 14.5 11.1-15.9 g/dL Hematocrit 45.2 34.0-46.6 % MCV 99 79-97 fL H MCH 31.7 26.6-33.0 pg MCHC 32.1 31.5-35.7 g/dL RDW 12.6 11.7-15.4 % Platelets 301 150-450 x10E3/uL Neutrophils 61 Not Estab. % Lymphs 28 Not Estab. % Monocytes 7 Not Estab. % Eos 3 Not Estab. % Basos 1 Not Estab. % Neutrophils (Absolute) 3.4 1.4-7.0 x10E3/uL Lymphs (Absolute) 1.6 0.7-3.1 x10E3/uL Monocytes(Absolute) 0.4 0.1-0.9 x10E3/uL Eos (Absolute) 0.2 0.0-0.4 x10E3/uL Baso (Absolute) 0.0 0.0-0.2 x10E3/uL Immature Granulocytes 0 Not Estab. % Immature Grans (Abs) 0.0 0.0-0.1 x10E3/uL Reason For Referral No Information Medications Medication SIG (Take, Route, Frequency, Duration) Notes Start Date End Date Diagnosis (ICD Code) Status Nicotine 14 MG/24HR Patch 24 Hour 1 patch to skin Transdermal Once a day, removing at bedtime; Duration: 14 days 12/08/2024 Adult general medical exam (ICD_10 - Z00.00) Active hydrOXYzine Pamoate 25 MG Capsule 1-2 capsules Orally every 4 hours as needed for anxiety, agitation, or inability to sleep. Do not give within 4 hours of diphenhydramine.; Duration: 30 days 12/08/2024 Adult general medical exam (ICD_10 - Z00.00) Active Multi Vitamin - Tablet 1 tablet Orally Once a day; Duration: 30 days 12/08/2024 Adult general medical exam (ICD_10 - Z00.00) Active Melatonin 5 MG Tablet 1 tablet at bedtime as needed Orally Once a day; Duration: 30 days 12/08/2024 Adult general medical exam (ICD_10 - Z00.00) Active Nicotine Polacrilex 4 MG Gum Chew 1 piece as needed for nicotine cravings Mouth/Throat up to every hour (max of 20 pieces per day); Duration: 7 days 12/08/2024 Adult general medical exam (ICD_10 - Z00.00) Active Social History Tobacco Use: Social History Observation Description Date Details (start date - stop date) Never Smoker NA - NA Sex Observation Social History Observation Description Sex Observation Female Sexual Orientation Social History Observation Description Sexual Orientation Straight or heterose xual Gender Identity Social History Observation Description Gender Identity Female SDOH Assessments Date Tool Assessment Assessment LOINC Value Assessment Notes Goals Interventions 12/09/19 25 PRAPARE (LOINC: 04348-5) Total Score: 9 Date Completed/Upda carrie: 12/09/19 25 What is your current housing situation? 26933-2 I have housing (CF57188-1) Are you worried about losing your housing? 42980-8 No (LA32-8) What is the highest level of school that you have finished? 64717-5 Less than a high school degree (NQ63578-8) What is your current work situation? 59270-2 Unemployed and seeking work (AM91210-5) In the past year, have you o r any family members you live with been unable to get any of the following when it was really needed? Check all that apply 75634-3 I do not have problems meeting my needs Has lack of transportation k ept you from medical appointments, meetings, work or from getting things needed for daily living? 10421-3 Yes, it has kept me from non-medical meetings, appointments, work, or getting things needed for daily living (LU91532-7) Yes, it has kept me from medical appointments or from getting my medications (RO33387-6) How often do you see or talk to people that you care about and feel close to? (For example: talking to friends on the phone, visiting friends or family, going to buddhist or club meetings) 38707-1 More than 5 times a week (IH92228-8) How stressed are you? Stress is when someone feels tense, nervous, anxious, or can\t sleep at night because their mind is troubled 42045-8 Quite a bit (IT18283-7) In the past year have you sp ent more than 2 nights in a row in a longterm, long-term, mcfp center, or juvenile correctional facility? 66831-3 No (LA32-8) Do you feel physically and emotionally safe where you currently live? 32013-9 Yes (LA33-6) In the past year, have you b een afraid of your partner or ex-partner? 28981-7 No (LA32-8) Are you a refugee? No What country are you from? [facility] PRAPARE Score: 9 Social History Social Determinants Social Info Question Answer Notes PRAPARE Date Completed/Updated: 12/08/2024 What is your current housing situation? I have h ousing Are you worried about losing your housing? No What is the highest level of school that you have finished? Less than a high school degree What is your current work situation? Unemployed and seeking work In the past year, have you o r any family members you live with been unable to get any of the following when it was really needed? Check all that apply I do not have problems meeting my needs Has lack of transportation k ept you from medical appointments, meetings, work or from getting things needed for daily living? Yes, it has kept me from medical appointments or from getting my medications,Yes, it has kept me from non-medical meetings, appointments, work, or getting things needed for daily living How often do you see or talk to people that you care about and feel close to? (For example: talking to friends on the phone, visiting friends or family, going to buddhist or club meetings) More than 5 times a week How stressed are you? Stress is when someone feels tense, nervous, anxious, or can\t sleep at night because their mind is troubled Quite a bit In the past year have you sp ent more than 2 nights in a row in a longterm, long-term, mcfp center, or juvenile correctional facility? No Are you a refugee? No What country are you from? [place] Do you feel physically and e motionally safe where you currently live? Yes In the past year, have you b een afraid of your partner or ex-partner? No PRAPARE Score: 9 Miscellaneous Social Info Question Answer Notes Method of learning: Preferred method of learning: Read ing Primary Social History Social Info Question Answer Notes Living Arrangement Living Arrangement: Dependent Inocente colin Is this a supportive environment? Yes Single Question Alcohol Screening How ma ny times in the past year have you had (4 for women, or 5 for men) or more drinks in a day? 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) Added On:12/08 Active confirmed Problem Adult health examination (142422447) Adult general medical exam (Z00.00) Added On:12/08 Active confirmed Vital Signs Vital Sign Value Notes Appt Date Heart Rate 70 /min 12/08/2024 Temperature 97.9 degrees Fahrenheit 11/16 Respiratory Rate 16 /min 12/08/2024 Oximetry 98 % 12/08/2024 Blood pressure diastolic 68 mm Hg Height 66 in 12/08/2024 Blood pressure systolic 112 mm Hg 11/16 Weight 133.6 lbs 12/08/2024 BMI 21.56 kg/m2 12/08/2024 Encounters Date Time Type Facility Location Provider Diagnosis 12/09/19 02:40 PM Office Visit, New Pt., Level 3 (04973) [facility] [address] [place] [address] Ponce Solano Adult general medical exam Z00.00 12/09/19 03:20 PM Office Visit [facility] [place] [address] Teresa Cavazos Methamphetamine abuse F15.10 Assessments Encounter Date Diagnosis (ICD Code) Assessment Notes Treat ment Notes Section Notes 12/08/2024 Methamphetamine abus e (ICD-10 - F15.10) 12/08/2024 Adult general medica l exam (ICD-10 - Z00.00) SUPR Programs: Based on an evaluation of [facility] Patient Placement Criteria, a recommendation for placement in Level III treatment is indicated and approved. Confirmation of diagnosis is documented in the initial treatment plan.Admit to the [facility] and initiate standing/protocol orders: The following PRN medications may be self-administered by patients under the supervision of approved staff or administered by nursing staff: Ibuprofen 200mg, 2-4 tablets by mouth (with food) every 6 hours as needed for pain (unless on lithium). (NOTE: Ibuprofen and acetaminophen may be given together, but alternating is recommended for continuous pain relief. Guaifenesin 400 mg, 1 tablet by mouth every four hours as needed for cough and chest congestion (take with large glass of water). Loratadine 10 mg, 1 tablet by mouth daily as needed for allergies, watery itchy eyes, or sinus drainage. Throat Lozenges, up to 4 tablets by mouth every three to four hours as needed for sore throat. Antacid tablets, 1-2 tablets by mouth every one to two hours as needed for indigestion or heart burn. If the client prefers liquid, could use: Liquid Antacid : 1 ounce by mouth up to four times daily as needed for indigestion or heartburn Omeprazole 20mg, 1 capsule by mouth once daily for 14 days for frequent heartburn (frequent heartburn is more than 2 episodes per week). Do not exceed 14 days. Do not give to client already taking a proton-pump inhibitor: esomeprazole (Nexium), lansoprazole (Prevacid), pantoprazole (Protonix), rabeprazole (Aciphex), dexlansoprazole (Dexilant) Zofran ODT disintegrating (under the tongue) 4 mg, 1-2 tablets every 8 hours as needed for nausea/vomiting. Milk of Magnesia (MOM): 1 ounce (30 milliliters) by mouth every day as needed for constipation. OR Miralax: Stir and fully dissolve 17 grams (1 packet or 1 capful to measured line) in any 4 to 8 ounces of beverage then drink once daily for constipation. Do not use for more than 7 days. OR Docusate 100 mg, 1 capsule twice daily as needed for constipation Hydrocortisone 1% Cream, apply topically (to the skin) to the affected area up to three times daily as needed for itching or inflammation (avoid eyes and genitals). 2% Antifungal Cream, apply topically (to the skin) as directed as needed to affected areas for athlete's foot or jock itch. Triple Antibiotic Ointment, apply topically (to the skin) up to three times daily as needed for minor cuts and scrapes. Carmex or Chapstick, apply topically (to the skin) as needed for chapped lips and skin. Orajel, apply to affected areas as needed for mouth or tooth pain. Lubricating Eye Drops, instill 1-2 drops to the affected eye(s) as needed for dry/irritated eye(s). Hemorrhoid medications, apply to affected area according to directions as needed for hemorrhoid discomfort and itch. Nix (Permethrin 1%) cream 2 ounces, apply topically (to the skin) as directed as needed for head lice. Sunscreen 30 SPF, Apply to exposed skin prior to exposure to sun. The following PRN medications must be approved by nursing staff before self-administration by patients: Diphenhydramine 25 mg, 2 tablets by mouth every 4 hours as needed for allergic reaction or itchy rash. Caution: Do not use hydroxyzine within 4 hours of diphenhydramine and vice versa. Loperamide 2 mg capsules, may give two capsules by mouth for the initial dose, followed by one capsule up to 3 times a day as needed for diarrhea. Acetaminophen 500 mg, 1 - 2 tablets by mouth every six hours as needed for pain. (NOTE: Ibuprofen and acetaminophen may be given together, but alternating is recommended for continuous pain relief). Oxygen-May administer oxygen 2L/min via nasal cannula if O2 saturation is less than 92%, AND client complains of shortness of breath. Target O2 saturation is 94-98%. Caution: Remember too much oxygen can be detrimental to a client with COPD. Oxygen is a drug and should be delivered by trained staff only. Nurses may remove superficial splinters and sutures from skin lacerations. May apply gauze or bandages to any weeping wounds. Contact nursing if there is pus, a foul odor, increased pain/redness/swelling , or if soaking through bandages. 12/08/2024 Other Continue treatment as recommended by [facility] staff. Encouraged patient to obtain routine medical care with patient's own primary care provider or establish as a patient at [facility] if no current primary care provider. 12/08/2024 Other Clinician met w ith client to assess needs for residential services. Clinician gathered information regarding historical presentation of mental health and substance use symptoms including withdrawal, HIV Risk assessment, psychiatric hospitalization history and presenting concern. Clinician conducted PHQ9 and CSSRS assessments as well as social drivers of health screening for the purposes of identifying additional service needs. Plan Of Treatment No Information Insurance Providers Payer Name Payer Address Payer Phone Subscriber Number Group Number Insured Name Patient Relationship to Insured Coverage Start Date Coverage End Date [employer] [address] [place] [address] [id number] Tatyana Kilpatrick Self - patient is the insured 5 [employer] [facility] [address] [place] [address] [id number] Tatyana Kilpatrick Self - patient is the insured 5 Medical (General) History Surgical History Surgery Date(Month/Year) Hospitalization History Reason Date(Month/Year)
--- OUTSIDE RECORDS SUMMARY | 2025-05-11 05:11 | XMS_ITS | Clinical Summary ---
Author Organization [address] Address [address] [place] [address] Care Team Providers Care Oncology Social Worker Name Role Phone No, Physician Primary Care Provider [phone] Allergies No known active allergies Medications clindamycin [...] by mouth daily 60 tablet 01/15/2025 Active sulfamethoxazol e-trimethoprim (BACTRIM) 800-160 mg per tablet Take 1 tablet by mouth 2 (two) times a day for 10 days smx-tmp DS (BACTRIM) 800-160 mg tabs 20 tablet 05/10/2025 Active naproxen (NAPROSYN) 500 mg tablet Take 1 tablet (500 mg total) by mouth 2 (two) times a day as needed for pain Take with food. 30 tablet 05/10/2025 Active Encounters Date Type Department Care Team Description 05/10/2025 3:22 AM MANAGER RADIATION - 05/10/2025 3:52 AM MANAGER RADIATION Emergency [facility] Emergency Department [address] [place] [address] Roderick Lobato MD Cellulitis of face (Primary Dx) Discharge Disposition: [...] on file Legal Sex Female 11:59 AM MANAGER RADIATION Gender Identity Not on file Sexual Orientation Not on file Obstetrics History Para Term AB IAB SAB Ectopic Multiple Livin g Live Births 1 1 Date Outcome GA Total Labor Labor/2nd/3rd Weight Sex Type Anes PTL Rose A1 A5 Name Clin Para Last Filed Vital Signs Vital Sign Reading Time Taken Comments Blood Pressure 133/75 05/10/2025 3:17 AM MANAGER RADIATION Pulse 112 05/10/2025 3:17 AM MANAGER RADIATION Temperature 36.5 C (97.7 F) 05/10/2025 3:17 AM MANAGER RADIATION Respiratory Rate 16 05/10/2025 3:17 AM MANAGER RADIATION Oxygen Saturation 98% 05/10/2025 3:17 AM MANAGER RADIATION Inhaled Oxygen Concentration - - Weight 63.5 kg (140 lb) 05/10/2025 3:17 AM MANAGER RADIATION Height 165.1 cm (5' 5) 05/10/2025 3:17 AM MANAGER RADIATION Body Mass Index 23.3 05/10/2025 3:17 AM MANAGER RADIATION Plan of Treatment Health Maintenance Due Date [...] Procedure Name Priority Date/Time Associated Diagnosis Comments HI INCISION & DRAINAGE ABSCESS SIMPLE/SINGLE Routine 05/10/2025 4:08 AM MANAGER RADIATION AEROBIC CULTURE AND GRAM STAIN Routine 05/10/2025 3:49 AM MANAGER RADIATION from Last 3 Months Results * HI INCISION & DRAINAGE ABSCESS SIMPLE/SINGLE (05/10/2025 4:08 AM MANAGER RADIATION) Narrative Roderick Lobato MD - 05/10/2025 4:08 AM MANAGER RADIATION Roderick Lobato MD 05/10/2025 4:08 AM Incision [...] Lobato MD IN CLINIC/BEDSIDE ORDERABLES Final Result from Last 3 Months Insurance Care Teams Oncology Social Worker Relationship Specialty Start Date End Date No, Physician PCP - General 11/15/24
--- OUTSIDE RECORDS SUMMARY | 2025-05-11 07:49 | XMS_ITS | Clinical Summary ---
Author Organization [address] Address [address] [place] [id number] Care Team Providers Care Cane Cutter Name Role Phone No, Physician Primary Care Provider [phone] Allergies No known active allergies Medications clindamycin [...] Department Care Team Description 05/10/2025 3:22 AM FEATURES REPORTER - 05/10/2025 3:52 AM FEATURES REPORTER Emergency [facility] Emergency Department [address] [place] [address] Roderick Lobato MD Cellulitis of face (Primary [...] on file Legal Sex Female 11:59 AM FEATURES REPORTER Gender Identity Not on file Sexual Orientation Not on file Obstetrics History Para Term AB IAB SAB Ectopic Multiple Livin g Live Births 1 1 Date Outcome GA Total Labor Labor/2nd/3rd Weight Sex Type Anes PTL Rose A1 A5 Name Clin Para Last Filed Vital Signs Vital Sign Reading Time Taken Comments Blood Pressure 133/75 05/10/2025 3:17 AM FEATURES REPORTER Pulse 112 05/10/2025 3:17 AM FEATURES REPORTER Temperature 36.5 C (97.7 F) 05/10/2025 3:17 AM FEATURES REPORTER Respiratory Rate 16 05/10/2025 3:17 AM FEATURES REPORTER Oxygen Saturation 98% 05/10/2025 3:17 AM FEATURES REPORTER Inhaled Oxygen Concentration - - Weight 63.5 kg (140 lb) 05/10/2025 3:17 AM FEATURES REPORTER Height 165.1 cm (5' 5) 05/10/2025 3:17 AM FEATURES REPORTER Body Mass Index 23.3 05/10/2025 3:17 AM FEATURES REPORTER Plan of Treatment Health Maintenance Due Date [...] Procedure Name Priority Date/Time Associated Diagnosis Comments UT INCISION & DRAINAGE ABSCESS SIMPLE/SINGLE Routine 05/10/2025 4:08 AM FEATURES REPORTER AEROBIC CULTURE AND GRAM STAIN Routine 05/10/2025 3:49 AM FEATURES REPORTER from Last 3 Months Results * UT INCISION & DRAINAGE ABSCESS SIMPLE/SINGLE (05/10/2025 4:08 AM FEATURES REPORTER) Narrative Roderick Lobato MD - 05/10/2025 4:08 AM FEATURES REPORTER Roderick Lobato MD 05/10/2025 4:08 AM Incision [...] from Last 3 Months Insurance Care Teams Cane Cutter Relationship Specialty Start Date End Date No, Physician PCP - General 11/15/24
--- NOTE | 2025-05-11 09:04 | ED_ITS ---
HPI - General Adult General Chief complaint: Unspecified Stated complaint: facial cellulitis Time Seen by Provider: 05/11/25 07:05 History of Present Illness HPI narrative: Patient is a 20-year-old female who presents ER with infection to her right face. She was seen on the evening of 05/09 going into 05/10 it was prescribed Bactrim for a infection to her right cheondoism. She has taken 2 doses. She woke up this morning and there is swelling going towards her eye so she came in to be evaluated. No fevers or chills or sweats. No change in vision. No pain with extraocular movements. Patient has had scabbing in other skin infections in the past. She does pick. She denies IV drug abuse Related Data Home Medications ?Medication ?Instructions ?Recorded ?Confirmed ?Last Taken ?Type aspirin 81 mg tablet,delayed 81 mg PO DAILY 01/28/20 0 01/28/20 Unknown History release (Madeleine Low Dose Aspirin) calcium 500 mg (as 1 tablet PO BID 01/28/2005/06 Unknown History carbonate)-vitamin D3 5 mcg (200 unit) tablet (Oysco 500/D) folic acid 1 mg tablet 4 mg PO DAILY 01/28/2001/27 Unknown History vit no.95-ferrous 1 tablet PO DAILY 01/28/20 01/28/20 Unknown History fumarate 28 mg-folic acid 800 mcg tablet () Allergies Allergy/AdvReac Type Severity Reaction Status Date / Time latex Allergy Itching Verified 11/11/24 14:25 Review of Systems Review of Systems: All systems reviewed & are unremarkable except as noted in HPI and below Constitutional: Constitutional: Reports no additional constitutional complaints Eyes: Eyes: Reports no additional eye complaints ENT: Reports system reviewed and no additional complaints, except as documented Musculoskeletal: Musculoskeletal: Reports no additional musculoskeletal complaints Integumentary/Breasts: Skin/Breast: Reports system reviewed and no additional complaints, except as docu [facility] Past Medical History Medical History Candidiasis of vagina Bacterial vaginosis Rh negative status during Homozygous MTHFR mutation C677T Intrauterine in teenager Family History Family History Grandparent Cervical cancer Mother Cervical cancer Social History Social History Smoking packs per day: 1 Smoking cigarettes per day: 20.0 Years smoked: 2 Smoking pack-years: 2.00 Smoking status: Former smoker Tobacco type: cigarettes Second hand tobacco smoke exposure: Yes Alcohol intake: never Substance use: former Substance use type: marijuana Living arrangements: with family Occupation/Education: student Gender identity (if verbalized by the patient): Female Sexual Orientation (if Verbalized by the Patient): Straight or Heterosexual Spiritual care concerns: No Exam Narrative: GENERAL: Well-appearing, well-nourished, and in no acute distress. HEAD: Normocephalic, atraumatic. EYES: PERRL and EOMI. Mild edema in the right periorbital area without tenderness overt cellulitis. ENT: Mucous membranes moist. CHEST: Clear to auscultation. No respiratory distress. HEART: Regular rate and rhythm. Normal peripheral pulses. ABDOMEN: Soft, nontender, nondistended. EXTREMITIES: Normal range of motion. No edema. SKIN: Warm, dry, no rash. Tender from nodule right cheondoism region where there is some sloughed off hair and dried skin. NEURO: Alert and oriented x3. Course Course Emergency Course: Bedside ultrasound shows fluid collection. Small incision drainage performed due to location. Significant fluid drained from the area. This should help patient's healing process. Appropriate for discharge home with continued Bactrim and oral pain control. Recommend that she do warm compresses regularly for the next 48 hours to help keep there is soft and encourage drainage. Vital Signs Vital signs: Vital Signs Temperature 97.9 F 05/11/25 05:11 Pulse Rate 119 H 05/11/25 05:11 Respiratory Rate 18 05/11/25 05:11 Blood Pressure 130/70 05/11/25 05:11 Pulse Oximetry 100 05/11/25 05:11 Oxygen Delivery Room Air 05/11/25 05:11 Temperature 97.9 F 05/11/25 05:11 Pulse Rate 119 H 05/11/25 05:11 Respiratory Rate 18 05/11/25 05:11 Blood Pressure 130/70 05/11/25 05:11 Pulse Oximetry 100 05/11/25 05:11 Oxygen Delivery Room Air 05/11/25 05:11 Procedures Abscess I/D face: Date of Incision: 05/11/25 Time of Incision: 09:16 Side (if applicable): right Local Anesthetic: lidocaine 1% and with epi Amount of anesthesia used (mL): 3 Technique: incised with #11 blade Irrigation: No Packing used?: none I&D Results: Pus Complications: pain MDM Differential Diagnosis Differential Diagnosis: Periorbital cellulitis, abscess, cellulitis Discharge Plan Discharge Clinical Impression: Abscess Patient Disposition: Home Condition: Stable Instructions: Antibiotic Form, Abscess (ED) Additional Instructions: You had an abscess drained. This should help improve your pain and your healing. Continue to take the antibiotic that was previously prescribed. Perform warm compresses to your face for the next 24-48 hours to help encourage drainage. Patient Language: Libyan Prescriptions: New hydrocodone-acetaminophen 5-325 mg tablet 1 tablet PO Q6H PRN (Reason: pain) Qty: 12 0RF No Action aspirin [Madeleine Low Dose Aspirin] 81 mg Tablet,Delayed Release (Dr/Ec) 81 mg PO DAILY folic acid 1 mg Tablet 4 mg PO DAILY calcium carbonate-vitamin D3 [Oysco 500/D] 500 mg(1,250mg) -200 unit Tablet 1 tablet PO BID PNV no.95-ferrous fumarate-FA [] 28 mg iron- 800 mcg Tablet 1 tablet PO DAILY sulfamethoxazole-trimethoprim [Bactrim DS] 800-160 mg tablet 1 tablet PO Q12H Qty: 14 0RF ibuprofen 600 mg tablet 600 mg PO TID PRN (Reason: fever or pain) Qty: 30 0RF ondansetron 4 mg tablet,disintegrating 4 mg PO Q8H PRN (Reason: nausea and vomiting) Qty: 10 0RF cephalexin 500 mg capsule 500 mg PO Q12H 7 Days Qty: 14 0RF Metamucil 3.4 gram/5.4 gram powder 1 tbsp PO DAILY Qty: 660 0RF Rx Instructions: mix into at least 8 oz of water or juice before administering magnesium citrate Solution 150 ml PO DAILY PRN (Reason: constipation) Qty: 296 0RF polyethylene glycol 3350 [Miralax] 17 gram/dose powder 17 g PO DAILY Qty: 119 0RF dicyclomine 10 mg capsule 10 mg PO BID PRN (Reason: abdominal pain) Qty: 10 0RF Follow-up/Referrals: Rico Washington MD [Physician, Family Practice] - 1 Week
[2025-05-11] MEDS: HYDROcodone/acetaminophen (*CRX) 5-325 MG TABLET 1 TAB PO (10:35)
[2025-05-11 10:39] VITALS: BP 126/76; PULSE 100; RESP 16; TEMP 36.7; O2SAT 100
== END 2025-05-11 10:40 | disposition home or self-care (01) ==
PROVIDERS: Emergency Provider Emergency Medicine
DX: L02.91 Cutaneous abscess, unspecified (principal); Z79.82 Long term (current) use of aspirin
CPT/HCPCS: 10060; 99283; A9270